=== PATIENT | female | born 1955 | race Caucasian/White ===

== ENCOUNTER → 2017-02-20 | Outpatient (CLI) | payer OTHER, MEDICAID ==
[~2017-02-20] MED LIST: ANCEF 1GM1 GM/50 M2 IV; APAP500 PO; ASPIR 8181 MG PO; ATORVASTATIN CA40 MG PO; CELEXA20 MG PO; CERTAVITE SR-A1 EACH PO; COLACE100 MG PO; CYMBALTA30 MG PO; CYMBALTA60 MG PO; DOXYCYCLINE 10100 MG PO; HUMALOG100 UNIT/1 SUBQ; HUMULIN R100 UNIT/M SUBQ; HYDROCODONE-AP1 EAC6 PO; LANTUS100 UNIT/M SUBQ; METFORMIN HCL500 MG PO; MULTIVITAMINS PO; NEURONTIN800 MG PO; NITROGLYCERIN0.4 MG SUBLING; NORCO 5-325 TA1 EACH PO; PLAVIX 75 MG TA75 M1 PO; TRAMADOL 50 MG50 MG PO; TRAZODONE HCL50 MG PO; TYLENOL325 MG PO; VANCOMYCIN1 GM/2502 IV
== END ==
LOC: M.WC 01:31
DX: E11.621 Type 2 diabetes mellitus with foot ulcer (principal); L97.511 Non-pressure chronic ulcer of other part of right foot limited to breakdown of skin; E11.51 Type 2 diabetes mellitus with diabetic peripheral angiopathy without gangrene; L89.894 Pressure ulcer of other site, stage 4; E11.42 Type 2 diabetes mellitus with diabetic polyneuropathy; I10 Essential (primary) hypertension; F33.1 Major depressive disorder, recurrent, moderate; F41.1 Generalized anxiety disorder; Z87.891 Personal history of nicotine dependence; Z72.89 Other problems related to lifestyle; Z89.421 Acquired absence of other right toe(s); Z90.710 Acquired absence of both cervix and uterus

== ENCOUNTER → 2017-02-26 | Outpatient (CLI) | payer OTHER, MEDICAID ==
--- NOTE | 2017-02-27 13:25 | CON ---
[address] [address] CONSULTATION Name: GALEN OZUNA Room: [facility] Schulte#: [id number] Admission: 02/26/17 Attend Phys: Kenji López DPM Discharge: Date of : 53 Report #: [id number] THIS REPORT FOR: //name// CC: Kenji Benedict DATE OF SERVICE: 02/26/2017 ATTENDING PHYSICIAN: Dr. Kneji López. REASON FOR FOLLOWUP: Right foot deep infection post- fourth metatarsalectomy for chronic osteomyelitis. She generally has been doing fairly well. She is utilizing wound VAC. On examination, the site is somewhat macerated. On examination, there is some undermining along the incisional line. She is seen by Dr. López who actually removed the sutures. We will plan to a wound VAC as a single approach. She has completed roughly 2 weeks of cefazolin without apparent adverse drug effect. Chronic osteomyelitis. At this point, would extend the cefazolin for at least additional 2 weeks. We will see how she does clinically. She is to call if problems. We will see her back at that point. Continue weekly labs, wound care per Dr. López. <ELECTRONICALLY SIGNED> By: Vin Jeffries MD 02/27/17 1325 0756 1101Joseelda Jeffries MD /nt
== END ==
LOC: M.WC 02-19 13:00
DX: E11.621 Type 2 diabetes mellitus with foot ulcer (principal); L97.511 Non-pressure chronic ulcer of other part of right foot limited to breakdown of skin; L89.894 Pressure ulcer of other site, stage 4; E11.51 Type 2 diabetes mellitus with diabetic peripheral angiopathy without gangrene; I10 Essential (primary) hypertension; F33.1 Major depressive disorder, recurrent, moderate; F41.1 Generalized anxiety disorder; E11.42 Type 2 diabetes mellitus with diabetic polyneuropathy; Z87.891 Personal history of nicotine dependence; Z72.89 Other problems related to lifestyle; Z89.421 Acquired absence of other right toe(s)

== ENCOUNTER → 2017-03-03 | Outpatient (CLI) | payer OTHER, MEDICAID | LOC: M.WC 10:30 | DX: E11.621 Type 2 diabetes mellitus with foot ulcer (principal); L97.511 Non-pressure chronic ulcer of other part of right foot limited to breakdown of skin; E11.42 Type 2 diabetes mellitus with diabetic polyneuropathy; E11.51 Type 2 diabetes mellitus with diabetic peripheral angiopathy without gangrene; I10 Essential (primary) hypertension; F33.1 Major depressive disorder, recurrent, moderate; F41.1 Generalized anxiety disorder; Z87.891 Personal history of nicotine dependence; Z90.710 Acquired absence of both cervix and uterus; Z89.421 Acquired absence of other right toe(s); Z72.89 Other problems related to lifestyle ==

== ENCOUNTER → 2017-03-06 | Outpatient (CLI) | payer OTHER, MEDICAID | LOC: M.WC 07:30 | DX: E11.621 Type 2 diabetes mellitus with foot ulcer (principal); L97.511 Non-pressure chronic ulcer of other part of right foot limited to breakdown of skin; L89.894 Pressure ulcer of other site, stage 4; E11.42 Type 2 diabetes mellitus with diabetic polyneuropathy; I73.9 Peripheral vascular disease, unspecified; I10 Essential (primary) hypertension; L84 Corns and callosities; F33.1 Major depressive disorder, recurrent, moderate; F41.1 Generalized anxiety disorder; Z87.891 Personal history of nicotine dependence; Z72.89 Other problems related to lifestyle; Z90.710 Acquired absence of both cervix and uterus; Z89.421 Acquired absence of other right toe(s) ==

== ENCOUNTER → 2017-03-07 | Outpatient (CLI) | payer OTHER, MEDICAID | LOC: M.WC 03-06 09:00 | DX: E11.621 Type 2 diabetes mellitus with foot ulcer (principal); L97.511 Non-pressure chronic ulcer of other part of right foot limited to breakdown of skin; L89.894 Pressure ulcer of other site, stage 4; E11.51 Type 2 diabetes mellitus with diabetic peripheral angiopathy without gangrene; E11.42 Type 2 diabetes mellitus with diabetic polyneuropathy; L84 Corns and callosities; F33.1 Major depressive disorder, recurrent, moderate; Z89.421 Acquired absence of other right toe(s); Z90.710 Acquired absence of both cervix and uterus; Z87.891 Personal history of nicotine dependence; Z72.89 Other problems related to lifestyle ==

== ENCOUNTER → 2017-03-10 | Outpatient (CLI) | payer OTHER, MEDICAID | LOC: M.WC 02:23 | DX: E11.621 Type 2 diabetes mellitus with foot ulcer (principal); L97.511 Non-pressure chronic ulcer of other part of right foot limited to breakdown of skin; E11.42 Type 2 diabetes mellitus with diabetic polyneuropathy; E11.51 Type 2 diabetes mellitus with diabetic peripheral angiopathy without gangrene; I10 Essential (primary) hypertension; F33.1 Major depressive disorder, recurrent, moderate; F41.1 Generalized anxiety disorder; Z68.27 Body mass index [BMI] 27.0-27.9, adult; Z87.891 Personal history of nicotine dependence; Z72.89 Other problems related to lifestyle; Z89.411 Acquired absence of right great toe; Z89.421 Acquired absence of other right toe(s); Z90.710 Acquired absence of both cervix and uterus; Z98.49 Cataract extraction status, unspecified eye ==

== ENCOUNTER → 2017-03-12 | Outpatient (CLI) | payer OTHER, MEDICAID ==
--- NOTE | 2017-03-13 11:27 | CON ---
[address] [address] CONSULTATION Name: DINO OZUNARamona Thomas Room: [facility] Eris#: [id number] Admission: 03/12/17 Attend Phys: Kenji López DPM Discharge: Date of : 53 Report #: [id number] THIS REPORT FOR: //name// CC: Kenji Benedict DATE OF SERVICE: 03/12/2017 ATTENDING PHYSICIAN: Kenji López DPM The patient returns today in followup of ongoing treatment for deep infection involving her right foot and osteomyelitis. 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 In general, she has been doing well. Denies significant localizing or systemic type signs or symptoms. She has completed 4 weeks of parenteral antibiotic therapy in a proposed 6-week course. Review of labs were generally not worrisome. Chronic osteomyelitis. We will continue as prescribed additional 2 weeks of therapy. We will see her back at that time and likely discontinue the IV antibiotics from the PICC line. Continue wound care as per Dr. López. <ELECTRONICALLY SIGNED> By: Vin Jeffries MD 03/13/17 1127 0734 0800Vin Jeffries MD /nt
== END ==
LOC: M.WC 01:26
DX: E11.621 Type 2 diabetes mellitus with foot ulcer (principal); L97.511 Non-pressure chronic ulcer of other part of right foot limited to breakdown of skin; L89.894 Pressure ulcer of other site, stage 4; E11.51 Type 2 diabetes mellitus with diabetic peripheral angiopathy without gangrene; E11.42 Type 2 diabetes mellitus with diabetic polyneuropathy; I10 Essential (primary) hypertension; F33.1 Major depressive disorder, recurrent, moderate; F41.1 Generalized anxiety disorder; Z68.27 Body mass index [BMI] 27.0-27.9, adult; Z87.891 Personal history of nicotine dependence; Z72.89 Other problems related to lifestyle; Z89.421 Acquired absence of other right toe(s)

== ENCOUNTER → 2017-03-14 | Outpatient (CLI) | payer OTHER, MEDICAID | LOC: M.WC 01:38 | DX: E11.621 Type 2 diabetes mellitus with foot ulcer (principal); L97.511 Non-pressure chronic ulcer of other part of right foot limited to breakdown of skin; E11.42 Type 2 diabetes mellitus with diabetic polyneuropathy; E11.51 Type 2 diabetes mellitus with diabetic peripheral angiopathy without gangrene; I10 Essential (primary) hypertension; F33.1 Major depressive disorder, recurrent, moderate; F41.1 Generalized anxiety disorder; Z89.421 Acquired absence of other right toe(s); Z90.710 Acquired absence of both cervix and uterus; Z72.89 Other problems related to lifestyle; Z87.891 Personal history of nicotine dependence ==

== ENCOUNTER → 2017-03-17 | Outpatient (CLI) | payer OTHER, MEDICAID | LOC: M.WC 01:22 | DX: E11.621 Type 2 diabetes mellitus with foot ulcer (principal); L97.511 Non-pressure chronic ulcer of other part of right foot limited to breakdown of skin; E11.42 Type 2 diabetes mellitus with diabetic polyneuropathy; E11.51 Type 2 diabetes mellitus with diabetic peripheral angiopathy without gangrene; I10 Essential (primary) hypertension; F33.1 Major depressive disorder, recurrent, moderate; F41.1 Generalized anxiety disorder; Z68.27 Body mass index [BMI] 27.0-27.9, adult; Z87.891 Personal history of nicotine dependence; Z72.89 Other problems related to lifestyle; Z89.411 Acquired absence of right great toe; Z89.421 Acquired absence of other right toe(s); Z90.710 Acquired absence of both cervix and uterus; Z98.49 Cataract extraction status, unspecified eye ==

== ENCOUNTER → 2017-03-21 | Outpatient (CLI) | payer OTHER, MEDICAID | LOC: M.WC 01:50 | DX: E11.621 Type 2 diabetes mellitus with foot ulcer (principal); L97.511 Non-pressure chronic ulcer of other part of right foot limited to breakdown of skin; L89.894 Pressure ulcer of other site, stage 4; E11.42 Type 2 diabetes mellitus with diabetic polyneuropathy; E11.51 Type 2 diabetes mellitus with diabetic peripheral angiopathy without gangrene; I10 Essential (primary) hypertension; L84 Corns and callosities; F33.1 Major depressive disorder, recurrent, moderate; F41.1 Generalized anxiety disorder; Z87.891 Personal history of nicotine dependence; Z72.89 Other problems related to lifestyle; Z90.710 Acquired absence of both cervix and uterus; Z89.421 Acquired absence of other right toe(s) ==

== ENCOUNTER → 2017-03-26 | Outpatient (CLI) | payer OTHER, MEDICAID ==
--- NOTE | 2017-03-27 13:58 | CON ---
[address] [address] CONSULTATION Name: OMEGA OZUNAHANNAH Thomas Room: [facility] Eris#: [id number] Admission: 03/26/17 Attend Phys: Kenji López DPM Discharge: Date of : 53 Report #: [id number] THIS REPORT FOR: //name// CC: Kenji Pulidoon DATE OF SERVICE: 03/26/2017 ATTENDING PHYSICIAN: Kenji López DPM The patient returns today in followup of ongoing treatment for chronic osteomyelitis involving her right foot. She has completed roughly 6 weeks of parenteral therapy and has been doing well. She has a mal perforans ulcer, she has healed the plantar aspect, residual wound on the dorsal aspect, it is much more smaller, there is no probing to bone at this point. On questioning, she denies any systemic illness, generally feels well. Review of laboratory is fairly unrevealing. Chronic osteomyelitis. At this point, we would discontinue the parenteral therapy. We would go ahead and remove the PICC line. We will see her back as needed. <ELECTRONICALLY SIGNED> By: Vin Jeffries MD 03/27/17 1358 0651 1046Jomario Jeffries MD /nt
== END ==
LOC: M.WC 01:29
DX: E11.621 Type 2 diabetes mellitus with foot ulcer (principal); L97.511 Non-pressure chronic ulcer of other part of right foot limited to breakdown of skin; E11.42 Type 2 diabetes mellitus with diabetic polyneuropathy; E11.51 Type 2 diabetes mellitus with diabetic peripheral angiopathy without gangrene; I10 Essential (primary) hypertension; F33.1 Major depressive disorder, recurrent, moderate; F41.9 Anxiety disorder, unspecified; Z68.27 Body mass index [BMI] 27.0-27.9, adult; Z87.891 Personal history of nicotine dependence; Z72.89 Other problems related to lifestyle; Z89.421 Acquired absence of other right toe(s); Z90.710 Acquired absence of both cervix and uterus

== ENCOUNTER → 2017-03-28 | Outpatient (CLI) | payer OTHER, MEDICAID | LOC: M.WC 08:00 | DX: E11.621 Type 2 diabetes mellitus with foot ulcer (principal); L97.511 Non-pressure chronic ulcer of other part of right foot limited to breakdown of skin; L89.894 Pressure ulcer of other site, stage 4; E11.42 Type 2 diabetes mellitus with diabetic polyneuropathy; E11.51 Type 2 diabetes mellitus with diabetic peripheral angiopathy without gangrene; I10 Essential (primary) hypertension; F33.1 Major depressive disorder, recurrent, moderate; F41.1 Generalized anxiety disorder; E11.36 Type 2 diabetes mellitus with diabetic cataract; Z87.891 Personal history of nicotine dependence; Z72.89 Other problems related to lifestyle; Z89.421 Acquired absence of other right toe(s); Z90.710 Acquired absence of both cervix and uterus ==

== ENCOUNTER → 2017-04-03 | Outpatient (CLI) | payer OTHER, MEDICAID | LOC: M.WC 10:00 | DX: E11.621 Type 2 diabetes mellitus with foot ulcer (principal); L97.511 Non-pressure chronic ulcer of other part of right foot limited to breakdown of skin; E11.51 Type 2 diabetes mellitus with diabetic peripheral angiopathy without gangrene; E11.42 Type 2 diabetes mellitus with diabetic polyneuropathy; I10 Essential (primary) hypertension; F33.1 Major depressive disorder, recurrent, moderate; F41.1 Generalized anxiety disorder; Z68.27 Body mass index [BMI] 27.0-27.9, adult; Z87.891 Personal history of nicotine dependence; Z72.89 Other problems related to lifestyle; Z89.421 Acquired absence of other right toe(s); Z89.411 Acquired absence of right great toe; Z90.710 Acquired absence of both cervix and uterus; Z98.49 Cataract extraction status, unspecified eye ==

== ENCOUNTER → 2017-04-09 | Outpatient (CLI) | payer OTHER, MEDICAID | LOC: M.WC 01:45 | DX: E11.621 Type 2 diabetes mellitus with foot ulcer (principal); L97.511 Non-pressure chronic ulcer of other part of right foot limited to breakdown of skin; E11.51 Type 2 diabetes mellitus with diabetic peripheral angiopathy without gangrene; E11.42 Type 2 diabetes mellitus with diabetic polyneuropathy; I10 Essential (primary) hypertension; F33.1 Major depressive disorder, recurrent, moderate; F41.1 Generalized anxiety disorder; Z68.27 Body mass index [BMI] 27.0-27.9, adult; Z87.891 Personal history of nicotine dependence; Z72.89 Other problems related to lifestyle; Z89.411 Acquired absence of right great toe; Z89.421 Acquired absence of other right toe(s); Z90.710 Acquired absence of both cervix and uterus; Z98.49 Cataract extraction status, unspecified eye ==

== ENCOUNTER → 2017-04-23 | Outpatient (CLI) | payer OTHER, MEDICAID | LOC: M.WC 03:29 | DX: E11.621 Type 2 diabetes mellitus with foot ulcer (principal); L97.511 Non-pressure chronic ulcer of other part of right foot limited to breakdown of skin; L89.894 Pressure ulcer of other site, stage 4; E11.51 Type 2 diabetes mellitus with diabetic peripheral angiopathy without gangrene; E11.40 Type 2 diabetes mellitus with diabetic neuropathy, unspecified; E11.42 Type 2 diabetes mellitus with diabetic polyneuropathy; F32.9 Major depressive disorder, single episode, unspecified; Z87.891 Personal history of nicotine dependence; Z72.89 Other problems related to lifestyle; Z89.421 Acquired absence of other right toe(s); Z90.710 Acquired absence of both cervix and uterus; Z89.411 Acquired absence of right great toe ==

== ENCOUNTER → 2017-04-25 | Outpatient (CLI) | payer OTHER, MEDICAID | LOC: M.WC 10:00 | DX: E11.621 Type 2 diabetes mellitus with foot ulcer (principal); L97.511 Non-pressure chronic ulcer of other part of right foot limited to breakdown of skin; E11.42 Type 2 diabetes mellitus with diabetic polyneuropathy; E11.51 Type 2 diabetes mellitus with diabetic peripheral angiopathy without gangrene; L89.894 Pressure ulcer of other site, stage 4; F32.9 Major depressive disorder, single episode, unspecified; Z87.891 Personal history of nicotine dependence; Z72.89 Other problems related to lifestyle; Z89.421 Acquired absence of other right toe(s); Z89.411 Acquired absence of right great toe; Z90.710 Acquired absence of both cervix and uterus ==

== ENCOUNTER → 2017-05-07 | Outpatient (CLI) | payer OTHER, MEDICAID | LOC: M.WC 01:56 | DX: E11.621 Type 2 diabetes mellitus with foot ulcer (principal); L97.511 Non-pressure chronic ulcer of other part of right foot limited to breakdown of skin; L89.894 Pressure ulcer of other site, stage 4; E11.51 Type 2 diabetes mellitus with diabetic peripheral angiopathy without gangrene; E11.42 Type 2 diabetes mellitus with diabetic polyneuropathy; F32.9 Major depressive disorder, single episode, unspecified; Z87.891 Personal history of nicotine dependence; Z72.89 Other problems related to lifestyle; Z89.421 Acquired absence of other right toe(s) ==

== ENCOUNTER → 2018-05-29 | Day surgery (SDC) | payer OTHER, MEDICAID ==
[~2018-05-29] MED LIST changes: +JARDIANCE10 MG PO; +NEXIUM40 MG PO; +NORCO 7.5-3251 EACH PO
[2018-05-29 10:05] LABS: HEMATOCRIT 41.6 % (37.0-47.0); HEMOGLOBIN 13.9 gm/dL (12.0-15.0); MCH 29.9 pg (26.0-34.0); MCHC 33.4 g/dL (28.0-37.0); MCV 89.5 fL (80.0-100.0); MPV 8.5 fl. (7.2-11.1); RBC 4.64 mil/uL (4.20-5.00); RDW-CV 14.7 % (10.5-14.5); WBC 5.8 thou/uL (4.0-11.0)
[2018-05-29 10:12] LABS: CALCIUM 9.3 mg/dL (8.5-10.1); CREATININE 0.9 mg/dL (0.6-1.3); POTASSIUM 4.5 mmol/L (3.5-5.1)
--- NOTE | 2018-05-29 13:18 | EKG ---
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: : 1955 Requested By: Kenji López Order Number: [id number] Neris MD: Jesus Simmons Measurements Intervals [place] Rate: 72 P: 21 ME: 153 QRS: -64 QRSD: 129 T: 70 QT: 432 QTc: 473 Interpretive Statements Sinus rhythm Probable left atrial enlargement RBBB and LAFB Compared to ECG 05/06/2016 14:10:12 No significant changes Electronically Signed On 05-29-2018 13:18:35 CDT by Jesus Simmons [email or web address] <ELECTRONICALLY SIGNED> By: Jesus Simmons MD, [facility] 05/29/18 1318 7 Jesus Simmons MD, [facility] /EPI
--- NOTE | 2018-06-02 15:06 | PATH ---
[address] [address] PATHOLOGY RPT PROCEDURE Name: BARBARA OZUNA Room: [facility] M.R.#: [id number] Admission: 05/29/18 Date of : 53 Discharge: Report #: [id number] Path Case #: [id number] L[facility] Accession Number: [id number] . 01 Material submitted: . RIGHT 4TH METATARSAL . 01 Clinical history: . Osteomyelitis fourth metatarsal . 02 Diagnosis: Right fourth metatarsal: - Segment of benign bone with prominent osteomyelitis at one end in association with acute inflammation of attached soft tissues, with opposite end of bone (transection edge) free of osteomyelitis. (DORA:pit 06/02/2018) QTP/06/02/2018 . 02 Electronically signed: . Bryan Thomas MD, Pathologist NPI- [id number] . 01 Gross description: . The specimen is received in formalin, labeled "Barbara Ozuna, right fourth metatarsal" and consists of a segment of bone with a small amount of attached soft tissue measuring 4.6 x 2.0 x 1.0 cm. One aspect is smooth and liu consistent with a transected margin while the other is a fragmented, possible articular surface. Sectioning reveals predominantly yellow-liu cut surfaces with brown discoloration near the fragmented surface. A full-thickness longitudinal section is submitted in A1-A2 with the transected margin in A1 and opposite surface in A2. The specimen is submitted following decalcification. ([facility]; 05/30/2018) SYU/SYU . 02 Pathologist provided ICD-10: M86.8X7, M79.89 . 02 CPT . 808391, 800343 Specimen Comment: A courtesy copy of this report has been sent to Specimen Comment: [phone]. Specimen Comment: Report sent to DR BYRD Performed at: [address] [id number] MD Sp Flynn MD Phone: [phone] Performed at: 02 [place] [address] PATHOLOGY RPT PROCEDURE Name: BARBARA OZUNA Room: [facility] M.R.#: [id number] Admission: 05/29/18 Date of : 53 Discharge: Report #: [id number] Path Case #: [id number] [facility] [address] ARIAS Hooker [id number] MD Bryan Thomas MD Phone: [phone]
--- NOTE | 2018-06-24 17:31 | OP ---
[address] [address] OPERATIVE REPORT Name: GALEN OZUNA Room: [facility].#: [id number] Admission: 05/29/18 Attend Phys: Kenji López DPM Discharge: Date of : 53 Report #: [id number] THIS REPORT FOR: //name// CC: Kenji Benedict DATE OF SERVICE: 05/29/2018 SURGEON: Kenji López DPM PREOPERATIVE DIAGNOSIS: Osteomyelitis, right distal fourth metatarsal. POSTOPERATIVE DIAGNOSIS: Osteomyelitis, right distal fourth metatarsal. PROCEDURE: 1. Resection of right fourth metatarsal. 2. Incision and drainage, right foot. 3. Pedicled skin flap, right foot. ANESTHESIA: MAC. INJECTABLES: 30 mL of a 1:1 mixture of 0.5% Marcaine plain and 1% lidocaine plain. HEMOSTASIS: Right ankle pneumatic tourniquet at 250 mmHg. SPECIMENS: Right fourth metatarsal. CULTURES: 1. Bone, right fourth metatarsal, aerobic, anaerobic. 2. Soft tissue, right foot, aerobic, anaerobic. ESTIMATED BLOOD LOSS: Minimal. SUTURES: 3-0 nylon. COMPLICATIONS: None. DESCRIPTION OF PROCEDURE: The patient was brought to the OR and placed on the table supine with induction of MAC anesthesia. A well-padded right ankle pneumatic tourniquet was placed. A local anesthetic block was given to the distal right foot and extremity was prepped and draped aseptically. After exsanguination, the tourniquet was inflated and a dorsal incision was created over the right distal fourth metatarsal extending to the distal foot wound. Layered anatomic dissection utilized with electrocautery for hemostasis. The distal fourth metatarsal was discolored, soft and necrotic consistent with [address] [address] OPERATIVE REPORT Name: GALEN OZUNA Room: [facility] Eris#: [id number] Admission: 05/29/18 Attend Phys: Kenji López DPM Discharge: Date of : 53 Report #: [id number] osteomyelitis. This encompassed the distal head and neck region of the metatarsal. The midshaft and more proximal metatarsal shaft had a normal appearance. I mobilized the soft tissue off the fourth metatarsal and transected at the base. A portion of bone from the metatarsal head was sent for aerobic and anaerobic bone cultures and some surrounding soft tissue was sent for the same cultures. The remaining fourth metatarsal was sent for surgical pathology. I debrided the wound interior of any devitalized or infected looking tissue and tendons. The wound was cauterized and flushed with sterile saline with bacitracin irrigant. I remodeled the skin margins and mobilized the flap from plantar medial to dorsal lateral and sutured with 3-0 nylon in simple interrupted fashion. I utilized a piece of NOZA AG as a drain between 2 sutures. I was able to close the entire incision without an open wound. The foot was cleansed and dried and a sterile compressive bandage was applied. The tourniquet was deflated with normal vascular return. The patient left the OR with no complications noted. <ELECTRONICALLY SIGNED> By: Kenji López DPM 06/24/18 1731 1256 1322Dbassam López DPM /nt
== END | disposition home or self-care (01) ==
LOC: M.SUR 06:57
PROVIDERS: Podiatrist Foot & Ankle Surgery
DX: M86.171 Other acute osteomyelitis, right ankle and foot (principal); M79.89 Other specified soft tissue disorders; E11.9 Type 2 diabetes mellitus without complications; G62.9 Polyneuropathy, unspecified; K21.9 Gastro-esophageal reflux disease without esophagitis; E66.09 Other obesity due to excess calories; Z79.899 Other long term (current) drug therapy; Z88.6 Allergy status to analgesic agent; Z90.710 Acquired absence of both cervix and uterus; F17.210 Nicotine dependence, cigarettes, uncomplicated; Z98.890 Other specified postprocedural states; Z90.49 Acquired absence of other specified parts of digestive tract; Z88.8 Allergy status to other drugs, medicaments and biological substances

== ENCOUNTER → 2018-06-10 | Outpatient (CLI) | payer OTHER, MEDICAID | LOC: M.WC 05:11 | DX: E11.621 Type 2 diabetes mellitus with foot ulcer (principal); L97.512 Non-pressure chronic ulcer of other part of right foot with fat layer exposed; E11.42 Type 2 diabetes mellitus with diabetic polyneuropathy; E11.51 Type 2 diabetes mellitus with diabetic peripheral angiopathy without gangrene; E11.69 Type 2 diabetes mellitus with other specified complication; M86.8X7 Other osteomyelitis, ankle and foot; I87.2 Venous insufficiency (chronic) (peripheral); F32.9 Major depressive disorder, single episode, unspecified; Z98.49 Cataract extraction status, unspecified eye; Z90.710 Acquired absence of both cervix and uterus; Z89.411 Acquired absence of right great toe; Z89.421 Acquired absence of other right toe(s); Z87.891 Personal history of nicotine dependence ==

== ENCOUNTER → 2018-06-17 | Outpatient (CLI) | payer OTHER, MEDICAID ==
--- NOTE | 2018-06-18 11:26 | CON ---
[address] [address] CONSULTATION Name: GALEN OZUNA Room: [facility] MARTINE[facility] McleanRoShilpaRo#: [id number] Admission: 06/17/18 Attend Phys: Sp Benedict, Discharge: Date of : 53 Report #: [id number] THIS REPORT FOR: //name// CC: Sp Benedict DATE OF SERVICE: 06/17/2018 ATTENDING PHYSICIAN: Dr. López. She is seen at [facility] in [place], [place]. The patient returns in followup ongoing treatment for osteomyelitis involving her right foot. She is status post lateral toe amputation. Postop course, she has been on parenteral antimicrobial therapy with cefazolin for roughly 3 weeks to this date. She did have dehiscence of the site. On evaluation at present with Dr. López, he did debride the wound. He did not appreciate any extension to bone at this point. He did debride using a curette, had reasonably good granulation tissue. Overall degree of inflammation was pretty mild at the surface and the margin of the wound. On questioning, she denies any particular associated systemic illness. Appetite has been fair. Blood sugars have been well controlled. I did review her most recent labs, which was unremarkable including a sed rate in the single digit. ASSESSMENT AND PLAN: Chronic osteomyelitis. At this point, would extend the parenteral antibiotics likely just one more week. Continue wound care as prescribed including packing of the wound. She is to offload this site, optimize her nutritional intake. <ELECTRONICALLY SIGNED> By: Vin Jeffries MD 06/18/18 1126 1602 0904Joseelda Jeffries MD /nt
== END ==
LOC: M.RAD 05:08 → M.WC 05:08
DX: E11.621 Type 2 diabetes mellitus with foot ulcer (principal); L97.512 Non-pressure chronic ulcer of other part of right foot with fat layer exposed; E11.69 Type 2 diabetes mellitus with other specified complication; M86.671 Other chronic osteomyelitis, right ankle and foot; E11.51 Type 2 diabetes mellitus with diabetic peripheral angiopathy without gangrene; E11.42 Type 2 diabetes mellitus with diabetic polyneuropathy; I87.2 Venous insufficiency (chronic) (peripheral); F32.9 Major depressive disorder, single episode, unspecified; Z95.0 Presence of cardiac pacemaker; Z89.411 Acquired absence of right great toe; Z87.891 Personal history of nicotine dependence; Z89.421 Acquired absence of other right toe(s)

== ENCOUNTER → 2018-06-24 | Outpatient (CLI) | payer OTHER, MEDICAID ==
--- NOTE | 2018-06-25 11:08 | CON ---
[address] [address] CONSULTATION Name: OZUNAGALEN ANGELA Room: [facility] Schulte#: [id number] Admission: 06/24/18 Attend Phys: Kenji López DPM Discharge: Date of : 53 Report #: [id number] THIS REPORT FOR: //name// CC: Kenji Benedict DATE OF SERVICE: 06/24/2018 ATTENDING PHYSICIAN: Kenij López DPM HISTORY OF PRESENT ILLNESS: She is in the [facility] at [place], [place]. The patient returns today in followup. She is post right fourth toe amputation, status post wound, deep infection involving the distal aspect of the metatarsal. She generally has done fairly well over the course of last 4 weeks since her surgery. She has been on parenteral therapy with cefazolin 2 grams IV q.8. The wound does show apparent contraction in overall size dimension, it is still roughly 2 cm of depth per probing by Dr. López. Apparently, she has got communication with hard tissue, in particular bone at this point. Review of the path report shows the margins to be clean and free of infection involving the third portion of the metatarsal. Chronic osteomyelitis. At this point, I think it is reasonable to transition to oral antibiotics. We will plan on 2 additional weeks of cephalexin with 500 mg p.o. 3 times a day because I removed the PICC line. She will continue offloading the site and wound care as per Dr. López. Again, encouraged oral food intake, in particular protein. <ELECTRONICALLY SIGNED> By: Vin Jeffries MD 06/25/18 1108 1707 0428Jomario Jeffries MD /nt
== END ==
LOC: M.WC 05:07
DX: E11.621 Type 2 diabetes mellitus with foot ulcer (principal); L97.512 Non-pressure chronic ulcer of other part of right foot with fat layer exposed; E11.51 Type 2 diabetes mellitus with diabetic peripheral angiopathy without gangrene; E11.69 Type 2 diabetes mellitus with other specified complication; M86.8X7 Other osteomyelitis, ankle and foot; E11.42 Type 2 diabetes mellitus with diabetic polyneuropathy; I87.2 Venous insufficiency (chronic) (peripheral); F32.9 Major depressive disorder, single episode, unspecified; Z89.411 Acquired absence of right great toe; Z89.421 Acquired absence of other right toe(s); Z87.891 Personal history of nicotine dependence

== ENCOUNTER → 2018-07-02 | Outpatient (CLI) | payer OTHER, MEDICAID | LOC: M.WC 08:11 | DX: E11.621 Type 2 diabetes mellitus with foot ulcer (principal); L97.512 Non-pressure chronic ulcer of other part of right foot with fat layer exposed; L89.893 Pressure ulcer of other site, stage 3; E11.42 Type 2 diabetes mellitus with diabetic polyneuropathy; E11.69 Type 2 diabetes mellitus with other specified complication; M86.671 Other chronic osteomyelitis, right ankle and foot; E11.51 Type 2 diabetes mellitus with diabetic peripheral angiopathy without gangrene; I87.2 Venous insufficiency (chronic) (peripheral); F32.9 Major depressive disorder, single episode, unspecified; Z89.421 Acquired absence of other right toe(s); Z89.422 Acquired absence of other left toe(s); Z89.411 Acquired absence of right great toe; Z87.891 Personal history of nicotine dependence ==

== ENCOUNTER → 2018-07-08 | Outpatient (CLI) | payer OTHER, MEDICAID ==
[2018-07-08 12:38] LABS: ABSOLUTE BASOPHILS 0.1 thou/uL (0.0-0.2); ABSOLUTE EOSINOPHILS 0.1 thou/uL (0.0-0.7); ABSOLUTE LYMPHOCYTES 1.7 thou/uL (0.8-5.3); ABSOLUTE MONOCYTES 0.3 thou/uL (0.0-1.2); ABSOLUTE NEUTROPHILS 4.1 thou/uL (1.6-8.1); BASOPHILS 1.1 %; EOSINOPHILS 1.2 %; HEMATOCRIT 46.1 % (37.0-47.0); HEMOGLOBIN 15.4 gm/dL (12.0-15.0); LYMPHOCYTES 27.2 %; MCHC 33.5 g/dL (28.0-37.0); MCV 89.4 fL (80.0-100.0); MONOCYTES 4.6 %; MPV 8.3 fl. (7.2-11.1); NUCLEATED RBCS 0 /100WBC; PLATELET COUNT* 166 thou/uL (150-400); POLYS 65.9 %; RBC 5.15 mil/uL (4.20-5.00); RDW-CV 15.2 % (10.5-14.5); WBC 6.2 thou/uL (4.0-11.0)
[2018-07-08 12:52] LABS: CALCIUM 9.3 mg/dL (8.5-10.1); CREATININE 0.8 mg/dL (0.6-1.3); POTASSIUM 4.9 mmol/L (3.5-5.1)
[2018-07-08 13:45] LABS: ESR (SEDRATE) 0 mm/hr (0-30)
== END ==
LOC: M.LAB 12:07
PROVIDERS: Family Medicine
DX: E11.621 Type 2 diabetes mellitus with foot ulcer (principal); E11.42 Type 2 diabetes mellitus with diabetic polyneuropathy; Z79.84 Long term (current) use of oral hypoglycemic drugs

== ENCOUNTER → 2018-07-10 | Outpatient (CLI) | payer OTHER, MEDICAID | LOC: M.WC 05:10 | DX: E11.621 Type 2 diabetes mellitus with foot ulcer (principal); L97.512 Non-pressure chronic ulcer of other part of right foot with fat layer exposed; L89.893 Pressure ulcer of other site, stage 3; E11.69 Type 2 diabetes mellitus with other specified complication; M86.671 Other chronic osteomyelitis, right ankle and foot; E11.51 Type 2 diabetes mellitus with diabetic peripheral angiopathy without gangrene; E11.42 Type 2 diabetes mellitus with diabetic polyneuropathy; I87.2 Venous insufficiency (chronic) (peripheral); F32.9 Major depressive disorder, single episode, unspecified; Z89.411 Acquired absence of right great toe; Z89.421 Acquired absence of other right toe(s); Z87.891 Personal history of nicotine dependence ==

== ENCOUNTER → 2018-07-17 | Outpatient (CLI) | payer OTHER, MEDICAID ==
--- NOTE | 2018-07-18 09:49 | CON ---
[address] [address] CONSULTATION Name: GALEN OZUNA Room: [facility] McleanRoShilpaRo#: [id number] Admission: 07/17/18 Attend Phys: Sp Benedict, Discharge: Date of : 53 Report #: [id number] THIS REPORT FOR: //name// CC: Sp Benedict DATE OF SERVICE: 07/17/2018 INFECTIOUS DISEASE CONSULTATION ATTENDING PHYSICIAN: Dr. Benedict. HISTORY OF PRESENT ILLNESS: She is here for right lateral foot chronic ulcerations setting of a deep infection. She is undergoing wound care as well as hyperbaric oxygen. She had completed a course of prescribed therapy, initially parenteral switched to oral. On evaluation, the wound continues to diminish in size, depth of 0.7. There is no evidence of ongoing issues with purulence. Deep right foot infection, postoperative debridement. We will continue as prescribed off the antibiotics, hyperbaric oxygen will be available as needed. Continue wound care. <ELECTRONICALLY SIGNED> By: Vin Jeffries MD 07/18/18 0949 0950 1401Jomario Jeffries MD /nt
== END ==
LOC: M.WC 00:14
DX: E11.621 Type 2 diabetes mellitus with foot ulcer (principal); L97.522 Non-pressure chronic ulcer of other part of left foot with fat layer exposed; L89.893 Pressure ulcer of other site, stage 3; E11.51 Type 2 diabetes mellitus with diabetic peripheral angiopathy without gangrene; E11.69 Type 2 diabetes mellitus with other specified complication; M86.671 Other chronic osteomyelitis, right ankle and foot; E11.42 Type 2 diabetes mellitus with diabetic polyneuropathy; I87.2 Venous insufficiency (chronic) (peripheral); F32.9 Major depressive disorder, single episode, unspecified; Z89.411 Acquired absence of right great toe; Z89.421 Acquired absence of other right toe(s); Z87.891 Personal history of nicotine dependence

== ENCOUNTER → 2018-07-24 | Outpatient (CLI) | payer OTHER, MEDICAID | LOC: M.WC 05:04 | DX: E11.621 Type 2 diabetes mellitus with foot ulcer (principal); L97.512 Non-pressure chronic ulcer of other part of right foot with fat layer exposed; L89.893 Pressure ulcer of other site, stage 3; E11.69 Type 2 diabetes mellitus with other specified complication; M86.671 Other chronic osteomyelitis, right ankle and foot; E11.51 Type 2 diabetes mellitus with diabetic peripheral angiopathy without gangrene; E11.42 Type 2 diabetes mellitus with diabetic polyneuropathy; I87.2 Venous insufficiency (chronic) (peripheral); F32.9 Major depressive disorder, single episode, unspecified; Z89.411 Acquired absence of right great toe; Z89.421 Acquired absence of other right toe(s); Z87.891 Personal history of nicotine dependence ==

== ENCOUNTER → 2018-07-31 | Outpatient (CLI) | payer OTHER, MEDICAID | LOC: M.WC 08:13 | DX: E11.621 Type 2 diabetes mellitus with foot ulcer (principal); L97.511 Non-pressure chronic ulcer of other part of right foot limited to breakdown of skin; L89.893 Pressure ulcer of other site, stage 3; E11.42 Type 2 diabetes mellitus with diabetic polyneuropathy; E11.69 Type 2 diabetes mellitus with other specified complication; M86.671 Other chronic osteomyelitis, right ankle and foot; I87.2 Venous insufficiency (chronic) (peripheral); E11.51 Type 2 diabetes mellitus with diabetic peripheral angiopathy without gangrene; F32.9 Major depressive disorder, single episode, unspecified; Z89.421 Acquired absence of other right toe(s); Z89.411 Acquired absence of right great toe; Z87.891 Personal history of nicotine dependence ==

== ENCOUNTER → 2018-08-07 | Outpatient (CLI) | payer OTHER, MEDICAID | LOC: M.WC 04:55 | DX: E11.621 Type 2 diabetes mellitus with foot ulcer (principal); L97.511 Non-pressure chronic ulcer of other part of right foot limited to breakdown of skin; L89.893 Pressure ulcer of other site, stage 3; E11.69 Type 2 diabetes mellitus with other specified complication; M86.671 Other chronic osteomyelitis, right ankle and foot; E11.42 Type 2 diabetes mellitus with diabetic polyneuropathy; E11.51 Type 2 diabetes mellitus with diabetic peripheral angiopathy without gangrene; I87.2 Venous insufficiency (chronic) (peripheral); F32.9 Major depressive disorder, single episode, unspecified; Z89.421 Acquired absence of other right toe(s); Z89.411 Acquired absence of right great toe; Z87.891 Personal history of nicotine dependence ==

== ENCOUNTER 2020-02-16 20:36 | Inpatient (IN) | payer MEDICARE ==
[~2020-02-16] VITALS: Ht 167.6 cm; Wt 81.0 kg
[2020-02-16 20:51] VITALS: BP 123/88
[2020-02-16] MEDS ORDERED: GABAPENTIN800 M1 PO (20:57)
[2020-02-16 21:31] LABS: ABSOLUTE BASOPHILS 0.1 thou/uL (0.0-0.2); ABSOLUTE LYMPHOCYTES 1.1 thou/uL (0.8-5.3); BASOPHILS 0.8 %; EOSINOPHILS 0.2 %; HEMATOCRIT 42.1 % (37.0-47.0); HEMOGLOBIN 14.2 gm/dL (12.0-15.0); MCH 29.4 pg (26.0-34.0); MCHC 33.7 g/dL (28.0-37.0); MCV 87.3 fL (80.0-100.0); MONOCYTES 7.9 %; MPV 8.2 fl. (7.2-11.1); NUCLEATED RBCS 0 /100WBC; PLATELET COUNT* 192 thou/uL (150-400); POLYS 82.1 %; RBC 4.82 mil/uL (4.20-5.00); RDW-CV 15.1 % (10.5-14.5); WBC 12.2 thou/uL (4.0-11.0)
[2020-02-16 21:46] LABS: APTT 25.1 Seconds (25.0-31.3); PROTIME 10.8 Seconds (9.20-11.50)
[2020-02-16 21:47] LABS: CALCIUM 10.1 mg/dL (8.5-10.1); CREATININE 1.1 mg/dL (0.6-1.3); POTASSIUM 4.8 mmol/L (3.5-5.1)
[2020-02-16 21:49] LABS: ALBUMIN 2.9 g/dL (3.4-5.0); TOTAL BILIRUBIN 0.6 mg/dL (<0.1-1.0); TOTAL PROTEIN 7.2 g/dL (6.4-8.2)
[2020-02-16 23:30] VITALS: BP 107/71
[2020-02-16 23:48] VITALS: BP 99/55
[2020-02-17 04:13] LABS: HEMATOCRIT 37.1 % (37.0-47.0); HEMOGLOBIN 12.7 gm/dL (12.0-15.0); MCH 29.4 pg (26.0-34.0); MCHC 34.2 g/dL (28.0-37.0); MCV 86.1 fL (80.0-100.0); MPV 8.1 fl. (7.2-11.1); RBC 4.31 mil/uL (4.20-5.00); WBC 10.2 thou/uL (4.0-11.0)
[2020-02-17 04:35] LABS: ALBUMIN 2.6 g/dL (3.4-5.0); CALCIUM 9.4 mg/dL (8.5-10.1); CREATININE 0.8 mg/dL (0.6-1.3); POTASSIUM 3.9 mmol/L (3.5-5.1); TOTAL BILIRUBIN 0.5 mg/dL (<0.1-1.0); TOTAL PROTEIN 6.4 g/dL (6.4-8.2)
[2020-02-17 08:02] VITALS: BP 114/68
--- NOTE | 2020-02-17 10:46 | EKG ---
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 : 1955 Requested By: Melody Pierce Order Number: [id number] MD: Chris Skinner Measurements Intervals [place] Rate: 99 P: -1 PA: 142 QRS: -63 QRSD: 123 T: 73 QT: 399 QTc: 513 Interpretive Statements Sinus rhythm Supraventricular bigeminy Probable left atrial enlargement RBBB and LAFB Baseline wander in lead(s) V6 Compared to ECG 05/29/2018 08:48:06 Atrial premature complex(es) now present Electronically Signed On 02-17-2020 10:46:21 SUBASSEMBLY ASSEMBLER by Chris Skinner [email or web address] <ELECTRONICALLY SIGNED> By: Chris Siknner MD, FACC 02/17/20 1046 58 58 Chris Skinner MD, [facility] /EPI
[2020-02-17 16:52] VITALS: BP 159/68
[2020-02-17 20:00] VITALS: BP 112/55
[2020-02-17 23:07] LABS: GLYCOHEMOGLOBIN (HGB A1C) 12.7 % (4.8-5.6)
[2020-02-18 03:06] LABS: CREATININE 0.8 mg/dL (0.6-1.3)
[2020-02-18 03:13] LABS: POTASSIUM 5.2 mmol/L (3.5-5.1)
[2020-02-18 04:00] VITALS: BP 115/68
[2020-02-18 04:17] LABS: ABSOLUTE BASOPHILS 0.1 thou/uL (0.0-0.2); ABSOLUTE EOSINOPHILS 0.1 thou/uL (0.0-0.7); ABSOLUTE LYMPHOCYTES 1.8 thou/uL (0.8-5.3); ABSOLUTE MONOCYTES 1.1 thou/uL (0.0-1.2); ABSOLUTE NEUTROPHILS 6.9 thou/uL (1.6-8.1); BASOPHILS 0.7 %; EOSINOPHILS 0.9 %; HEMATOCRIT 35.4 % (37.0-47.0); LYMPHOCYTES 17.7 %; MCH 29.5 pg (26.0-34.0); MCV 86.9 fL (80.0-100.0); MONOCYTES 10.6 %; MPV 7.4 fl. (7.2-11.1); NUCLEATED RBCS 0 /100WBC; PLATELET COUNT* 193 thou/uL (150-400); POLYS 70.1 %; RBC 4.07 mil/uL (4.20-5.00); RDW-CV 15.2 % (10.5-14.5); WBC 9.9 thou/uL (4.0-11.0)
[2020-02-18 08:29] VITALS: BP 115/70
[2020-02-18 11:30] VITALS: BP 121/75
[2020-02-18 17:15] VITALS: BP 121/75
[2020-02-18 20:00] VITALS: BP 120/69
[2020-02-19 00:24] VITALS: BP 120/72
[2020-02-19 04:05] LABS: ALBUMIN 1.6 g/dL (3.4-5.0); TOTAL BILIRUBIN 1.1 mg/dL (<0.1-1.0); TOTAL PROTEIN 3.6 g/dL (6.4-8.2)
[2020-02-19 04:25] LABS: POTASSIUM 3.1 mmol/L (3.5-5.1)
[2020-02-19 04:26] LABS: CALCIUM 5.6 mg/dL (8.5-10.1)
[2020-02-19 04:29] LABS: ABSOLUTE EOSINOPHILS 0.1 thou/uL (0.0-0.7); ABSOLUTE LYMPHOCYTES 1.3 thou/uL (0.8-5.3); ABSOLUTE MONOCYTES 0.8 thou/uL (0.0-1.2); ABSOLUTE NEUTROPHILS 5.2 thou/uL (1.6-8.1); BASOPHILS 0.5 %; HEMATOCRIT 25.8 % (37.0-47.0); LYMPHOCYTES 17.7 %; MCH 29.6 pg (26.0-34.0); MCHC 33.8 g/dL (28.0-37.0); MCV 87.5 fL (80.0-100.0); MONOCYTES 10.4 %; MPV 7.5 fl. (7.2-11.1); NUCLEATED RBCS 0 /100WBC; POLYS 70.4 %; RBC 2.95 mil/uL (4.20-5.00); RDW-CV 14.8 % (10.5-14.5); WBC 7.4 thou/uL (4.0-11.0)
[2020-02-19 04:30] LABS: HEMOGLOBIN 8.7 gm/dL (12.0-15.0)
[2020-02-19 06:11] LABS: PLATELET COUNT* 149 thou/uL (150-400)
[2020-02-19 08:00] VITALS: BP 130/64
[2020-02-19 11:00] VITALS: BP 118/64
[2020-02-19 16:06] VITALS: BP 121/74
[2020-02-19 19:54] VITALS: BP 78/47
[2020-02-20 04:58] LABS: ABSOLUTE BASOPHILS 0.1 thou/uL (0.0-0.2); ABSOLUTE EOSINOPHILS 0.1 thou/uL (0.0-0.7); ABSOLUTE LYMPHOCYTES 1.5 thou/uL (0.8-5.3); ABSOLUTE MONOCYTES 0.6 thou/uL (0.0-1.2); ABSOLUTE NEUTROPHILS 4.3 thou/uL (1.6-8.1); BASOPHILS 0.9 %; EOSINOPHILS 1.4 %; HEMATOCRIT 31.9 % (37.0-47.0); LYMPHOCYTES 23.3 %; MCH 29.4 pg (26.0-34.0); MCV 86.7 fL (80.0-100.0); MONOCYTES 8.9 %; MPV 7.4 fl. (7.2-11.1); NUCLEATED RBCS 0 /100WBC; PLATELET COUNT* 202 thou/uL (150-400); POLYS 65.5 %; RBC 3.68 mil/uL (4.20-5.00); RDW-CV 15.2 % (10.5-14.5); WBC 6.6 thou/uL (4.0-11.0)
[2020-02-20 05:09] LABS: HEMOGLOBIN 10.8 gm/dL (12.0-15.0)
[2020-02-20 05:18] LABS: ALBUMIN 2.2 g/dL (3.4-5.0); CREATININE 0.6 mg/dL (0.6-1.3); POTASSIUM 4.4 mmol/L (3.5-5.1); TOTAL BILIRUBIN 0.2 mg/dL (<0.1-1.0); TOTAL PROTEIN 5.7 g/dL (6.4-8.2)
[2020-02-20 05:19] LABS: CALCIUM 8.7 mg/dL (8.5-10.1)
[2020-02-20 08:02] VITALS: BP 123/71
[2020-02-20 16:41] VITALS: BP 106/63
[2020-02-20 19:45] VITALS: BP 89/41
[2020-02-21] VITALS (7 sets, daily range): BP systolic 112–129; BP diastolic 64–70
[2020-02-21] MEDS ORDERED: HUMALOG100 UNIT/1 SUBQ (11:06)
[2020-02-21] MEDS ORDERED: KEFLEX500 M1 PO (15:28)
[2020-02-21] MEDS ORDERED: FLAGYL500 M1 PO (15:29)
--- NOTE | 2020-02-23 13:06 | OP ---
[address] [address] OPERATIVE REPORT Name: GALEN OZUNA Room: [address] IN M.R.#: [id number] Admission: 02/16/20 Attend Phys: Anamaria Kitchen MD Discharge: 02/21/20 Date of : 53 Report #: [id number] THIS REPORT FOR: cc: Sp Benedict Russell J. DO ~ Hanon, Daniel R. DPM DATE OF SERVICE: 02/17/2020 SURGEON: Kenji López DPM PREOPERATIVE DIAGNOSES: Gangrene with osteomyelitis, left great toe. POSTOPERATIVE DIAGNOSES: Gangrene with osteomyelitis, left great toe. PROCEDURE: Amputation, left great toe at first MTP with primary closure. ANESTHESIA: MAC. INJECTABLES: 30 mL of 1:1 mixture of 0.5% Marcaine plain and 1% lidocaine plain. ESTIMATED BLOOD LOSS: Minimal. HEMOSTASIS: Left ankle pneumatic tourniquet at 250 mmHg. SUTURES: 3-0 nylon. SPECIMENS: Left great toe. CULTURES: 1. Bone, left great toe, aerobic and anaerobic. 2. Soft tissue, left great toe, aerobic and anaerobic. DESCRIPTION OF PROCEDURE: The patient was brought to the OR and placed on the table supine with induction of MAC anesthesia. A well-padded left ankle pneumatic tourniquet was placed and local anesthetic block was given with the above described mixture. The extremity was prepped and draped aseptically. The foot was exsanguinated with inflation of the tourniquet. A #10 blade was utilized to create a tennis racquet circumferential incision around the left great toe. Layered anatomic dissection utilized with electrocautery for intraoperative hemostasis. The great toe was [place] [address] OPERATIVE REPORT Name: GALEN OZUNA Room: [address]#: [id number] Admission: 02/16/20 Attend Phys: Anamaria Kitchen MD Discharge: 02/21/20 Date of : 53 Report #: [id number] and portion of bone and soft tissue ____ pathology, ____ was debrided with ____ the tourniquet was deflated ____. <ELECTRONICALLY SIGNED> By: Kenji López DPM 02/23/20 1306 27 36Kenji López DPM /nt
--- NOTE | 2020-02-23 13:06 | CON ---
[address] [address] CONSULTATION Name: GALEN OZUNA Room: [address] IN M.R.#: [id number] Admission: 02/16/20 Attend Phys: Anamaria Kitchen MD Discharge: 02/21/20 Date of : 53 Report #: [id number] THIS REPORT FOR: cc: Sp Benedict Russell J. DO ~ Hanon, Daniel R. DPM DATE OF SERVICE: 02/21/2020 CHIEF COMPLAINT: Postoperative day #4 for amputation of left great toe for osteomyelitis and gangrene. Surgical cultures grew methicillin-sensitive Staph aureus and group B streptococcus. She is on parenteral vancomycin and ceftriaxone with good tolerance. She feels well, good appetite, remained afebrile. She is partial weightbearing in a surgical shoe with walker for short distances and transfers. LABORATORY DATA: WBC 6.6, RBC 3.68, hemoglobin 10.8, hematocrit 31.9, platelets 202. BUN 13, creatinine 0.6, glucose 107. PHYSICAL EXAMINATION: Incision is well approximated with low-grade inflammation and no signs of dehiscence or acute vascular compromise. No drainage, bleeding or underlying fluctuance/crepitation. The foot is warm with faintly palpable pedal pulses bilaterally. No calf pain or popliteal tenderness bilaterally. Overall, clinically improved. IMPRESSION: Osteomyelitis with gangrene of left hallux, status post surgical amputation. PLAN: The patient to remain partial weightbearing in a surgical shoe with walker for short distances. Encouraged to rest, elevate foot, minimize ambulation. I will discuss with hospitalist regarding antibiotic choice. I will follow up with her next week at [facility] [place]. <ELECTRONICALLY SIGNED> By: Kenji López DPM 02/23/20 1306 0739 0744Kenji López DPM /nt
--- NOTE | 2020-02-23 13:06 | CON ---
[address] [address] CONSULTATION Name: GALEN OZUNA Room: [address] IN M.R.#: [id number] Admission: 02/16/20 Attend Phys: Anamaria Kitchen MD Discharge: 02/21/20 Date of : 53 Report #: [id number] THIS REPORT FOR: cc: Sp Benedict Russell J. DO ~ Kenji López DPM DATE OF SERVICE: 02/19/2020 CHIEF COMPLAINT: Postoperative day #2 for amputation of left great toe at first MTP with primary closure for osteomyelitis and gangrene. She is resting comfortably, minimal foot pain. Surgical tissue and bone cultures growing group B Streptococcus and Staphylococcus aureus. Arterial duplex Doppler ultrasound has been ordered. She is on parenteral vancomycin 1 gram q. 12 hours and ceftriaxone 1 gram q. 24 hours. She has remained nonweightbearing since surgery. She relates good appetite, she has been afebrile. LABORATORY DATA: WBC 7.4, RBC 2.95, hemoglobin 8.7, hematocrit 25.8, platelets 149. BUN 10, creatinine 1.0, glucose 46. PHYSICAL EXAMINATION: Temperature 97.0, pulse 77, respirations 18, blood pressure 120/72. The incision is well coapted with mild inflammation to the central aspect. No dehiscence, no underlying fluctuance or crepitation. Codi-incision capillary refill roughly 1 second. No pallor/cyanosis or signs of acute vascular embarrassment to the extremity. No calf pain or popliteal tenderness, back/adenopathy. IMPRESSION: Status post left hallux amputation for gangrene/osteomyelitis. PLAN: Incision cleansed and dressed with Xeroform, ABDs, Kerlix, and Jeffery bandage. The patient may transition to partial weightbearing to the heel after she receives physical therapy instruction. Encouraged to rest, elevate the extremity and minimize ambulation. <ELECTRONICALLY SIGNED> By: Kenji López DPM 02/23/20 1306 0938 1039Dakang López DPM /nt
--- NOTE | 2020-02-23 15:07 | PATH ---
[address] [address] PATHOLOGY RPT PROCEDURE Name: BARBARA OZUNA Room: [address] IN M.R.#: [id number] Admission: 02/16/20 Date of : 53 Discharge: 02/21/20 Report #: [id number] Path Case #: [id number] [facility] Accession Number: [id number] . 01 Material submitted: . hallux - LEFT HALLUX. Modifiers: left . 01 Clinician provided ICD-10: L03.032 . 01 Clinical history: . OSTEOMYELITIS AND GANGRENE LEFT GREAT TOE, CELLULITIS LEFT FOOT, UNCONTR DM . 02 Diagnosis: Left hallux: - Benign great toe with plantar non-specific ulceration, acute inflammation and necrosis of soft tissues and osteomyelitis of phalangeal bones. - Proximal disarticulation margin free of osteomyelitis. (DORA/db; 02/23/2020) LBQ 02/23/2020 1220 Local . 02 Electronically signed: . Bryan Thomas MD, Pathologist NPI- [id number] . 01 Gross description: . The specimen is received in formalin, labeled "Barbara Ozuna, left hallux". Received is an amputated digit measuring 6.6 x 3.3 x 2.4 cm in greatest dimensions. The bone margin is smooth and concave in appearance, consistent with disarticulation. The bone and soft tissue margins are inked black. The nail is present displaying a light liu to yellow-liu and thickened appearance. On the plantar aspect of the specimen, there is a poorly circumscribed, irregular in contour and light liu to pereyra-brown lesion, exposing the underlying bone, measuring 3.8 x 2.7 cm, which is 1.0 cm from the closest margin. A full-thickness longitudinal cross-section is submitted from proximal to distal aspects in cassettes A1 through A3, following decalcification. ([facility]; 02/21/2020) QA/[facility] 02/21/2020 1113 Local . 02 Pathologist provided ICD-10: L97.529, M79.9, M86.172 . 02 CPT . 303787, 391290 Specimen Comment: A courtesy copy of this report has been sent to [phone], [place] [address] PATHOLOGY RPT PROCEDURE Name: BARBARA OZUNA Room: [address] DIS IN M.R.#: [id number] Admission: 02/16/20 Date of : 53 Discharge: 02/21/20 Report #: [id number] Path Case #: [id number] Specimen Comment: [phone], Specimen Comment: Report sent to ,DR NAYAK / DR BYRD Performed at: [address], [place], [place] [id number] MD Jayro Powell MD Phone: [phone] Performed at: 02 [facility] [address], [place], [place] [id number] MD Bryan Thomas MD Phone: [phone]
== END 2020-02-21 16:24 | disposition home health service (06) | DRG 617 ==
LOC: M.ERS 20:36 → M.2W 22:12 → M.TBA-ER 22:12 → M.2W 23:40 → M.3W 02-19 11:17
PROVIDERS: Internal Medicine; Nurse Practitioner Family; ADMIT Internal Medicine; ATTEND Internal Medicine
PROC: 0Y6Q0Z0 Detachment at Left 1st Toe, Complete, Open Approach (ICD-10-PCS; principal; 2020-02-17)
DX: E11.69 Type 2 diabetes mellitus with other specified complication (principal); E11.52 Type 2 diabetes mellitus with diabetic peripheral angiopathy with gangrene; E44.0 Moderate protein-calorie malnutrition; L03.116 Cellulitis of left lower limb; I96 Gangrene, not elsewhere classified; M86.8X7 Other osteomyelitis, ankle and foot; E11.621 Type 2 diabetes mellitus with foot ulcer; L97.529 Non-pressure chronic ulcer of other part of left foot with unspecified severity; E11.00 Type 2 diabetes mellitus with hyperosmolarity without nonketotic hyperglycemic-hyperosmolar coma (NKHHC); F32.9 Major depressive disorder, single episode, unspecified; F17.210 Nicotine dependence, cigarettes, uncomplicated; Z96.1 Presence of intraocular lens; Z20.828 Contact with and (suspected) exposure to other viral communicable diseases; Z90.710 Acquired absence of both cervix and uterus; Z90.49 Acquired absence of other specified parts of digestive tract; Z79.899 Other long term (current) drug therapy; Z98.42 Cataract extraction status, left eye; Z98.41 Cataract extraction status, right eye; Z88.5 Allergy status to narcotic agent; Z88.8 Allergy status to other drugs, medicaments and biological substances; Z79.84 Long term (current) use of oral hypoglycemic drugs; Z68.28 Body mass index [BMI] 28.0-28.9, adult

== ENCOUNTER → 2020-03-01 | Outpatient (CLI) | payer OTHER ==
[~2020-03-01] MED LIST changes: +FLAGYL500 M1 PO; +GABAPENTIN800 M1 PO; +KEFLEX500 M1 PO
== END ==
LOC: M.WC 12:50
PROVIDERS: ATTEND Podiatrist Foot & Ankle Surgery
DX: T87.81 Dehiscence of amputation stump (principal); E11.621 Type 2 diabetes mellitus with foot ulcer; L97.521 Non-pressure chronic ulcer of other part of left foot limited to breakdown of skin; E11.69 Type 2 diabetes mellitus with other specified complication; M86.372 Chronic multifocal osteomyelitis, left ankle and foot; E11.52 Type 2 diabetes mellitus with diabetic peripheral angiopathy with gangrene; I96 Gangrene, not elsewhere classified; E11.42 Type 2 diabetes mellitus with diabetic polyneuropathy; J45.909 Unspecified asthma, uncomplicated; M19.90 Unspecified osteoarthritis, unspecified site; F32.9 Major depressive disorder, single episode, unspecified; Z87.891 Personal history of nicotine dependence; Z89.411 Acquired absence of right great toe; Z89.421 Acquired absence of other right toe(s); Z90.710 Acquired absence of both cervix and uterus; Z90.49 Acquired absence of other specified parts of digestive tract; Z98.49 Cataract extraction status, unspecified eye; Z79.4 Long term (current) use of insulin; Y83.5 Amputation of limb(s) as the cause of abnormal reaction of the patient, or of later complication, without mention of misadventure at the time of the procedure

== ENCOUNTER → 2020-03-08 | Outpatient (CLI) | payer OTHER | LOC: M.WC 12:40 | PROVIDERS: ATTEND Podiatrist Foot & Ankle Surgery | DX: T87.81 Dehiscence of amputation stump (principal); E11.621 Type 2 diabetes mellitus with foot ulcer; L97.522 Non-pressure chronic ulcer of other part of left foot with fat layer exposed; E11.69 Type 2 diabetes mellitus with other specified complication; M86.372 Chronic multifocal osteomyelitis, left ankle and foot; E11.52 Type 2 diabetes mellitus with diabetic peripheral angiopathy with gangrene; I96 Gangrene, not elsewhere classified; E11.42 Type 2 diabetes mellitus with diabetic polyneuropathy; J45.909 Unspecified asthma, uncomplicated; M19.90 Unspecified osteoarthritis, unspecified site; F32.9 Major depressive disorder, single episode, unspecified; Z87.891 Personal history of nicotine dependence; Z89.421 Acquired absence of other right toe(s); Z90.710 Acquired absence of both cervix and uterus; Z90.49 Acquired absence of other specified parts of digestive tract; Z98.49 Cataract extraction status, unspecified eye; Z79.4 Long term (current) use of insulin; Y83.5 Amputation of limb(s) as the cause of abnormal reaction of the patient, or of later complication, without mention of misadventure at the time of the procedure ==

== ENCOUNTER → 2020-03-15 | Outpatient (CLI) | payer OTHER | LOC: M.WC 12:32 | PROVIDERS: ATTEND Podiatrist Foot & Ankle Surgery | DX: T87.81 Dehiscence of amputation stump (principal); E11.621 Type 2 diabetes mellitus with foot ulcer; L97.522 Non-pressure chronic ulcer of other part of left foot with fat layer exposed; E11.69 Type 2 diabetes mellitus with other specified complication; M86.372 Chronic multifocal osteomyelitis, left ankle and foot; E11.52 Type 2 diabetes mellitus with diabetic peripheral angiopathy with gangrene; I96 Gangrene, not elsewhere classified; E11.42 Type 2 diabetes mellitus with diabetic polyneuropathy; J45.909 Unspecified asthma, uncomplicated; M19.90 Unspecified osteoarthritis, unspecified site; F32.9 Major depressive disorder, single episode, unspecified; Z87.891 Personal history of nicotine dependence; Z89.421 Acquired absence of other right toe(s); Z79.4 Long term (current) use of insulin; Y83.5 Amputation of limb(s) as the cause of abnormal reaction of the patient, or of later complication, without mention of misadventure at the time of the procedure ==

== ENCOUNTER → 2020-03-29 | Day surgery (SDC) | payer OTHER ==
[~2020-03-29] MED LIST changes: +NOVOLOG100 UNIT/1 SUBQ
[2020-03-29 14:28] LABS: HEMATOCRIT 38.2 % (37.0-47.0); HEMOGLOBIN 12.6 gm/dL (12.0-15.0); MCH 28.9 pg (26.0-34.0); MCV 87.5 fL (80.0-100.0); RBC 4.37 mil/uL (4.20-5.00); RDW-CV 15.8 % (10.5-14.5); WBC 6.1 thou/uL (4.0-11.0)
[2020-03-29 14:35] LABS: CALCIUM 9.5 mg/dL (8.5-10.1); CREATININE 0.8 mg/dL (0.6-1.3); POTASSIUM 4.3 mmol/L (3.5-5.1)
--- NOTE | 2020-03-29 14:42 | NUR ---
RIGHT BASILIC VESSEL ACCESSED FOR 4 IRANIAN SINGLE LUMEN PICC. LINE PRE-TRIMMED TO 41 CM AND ADVANCED TO THE ZERO MAICOL WITH NO RESISTANCE MET. UPPER ARM CIRCUMFERENCE ABOVE INSERTION SITE= 14". sherlock magnet and 3CG CONFIRMATION OF TIP TERMINATION AT THE CAVOATRIAL JUCTION APPRECIATED. GUDIEWIRE REMOVED, LINE FLUSHED AND INSERTION SITE DRESSED. REPORT GIVEN TO BRANDAN RICHMOND.
--- NOTE | 2020-04-05 12:42 | OP ---
[address] [address] OPERATIVE REPORT Name: GALEN OZUNA Room: [facility] Eris#: [id number] Admission: 03/29/20 Attend Phys: Kenji López DPM Discharge: Date of : 53 Report #: [id number] THIS REPORT FOR: cc: Sp Benedict Russell J. DO ~ Hanon, Daniel R. DPM DATE OF SERVICE: 03/29/2020 SURGEON: Kenji López DPM PREOPERATIVE DIAGNOSIS: Osteomyelitis, left distal first metatarsal with nonhealing wound. POSTOPERATIVE DIAGNOSIS: Osteomyelitis, left distal first metatarsal with nonhealing wound. PROCEDURE: Resection of left distal first metatarsal with soft tissue debridement and primary closure with skin flap. ANESTHESIA: MAC. INJECTABLES: 30 mL of a 1:1 mixture of 0.5% Marcaine plain and 1% lidocaine plain. ESTIMATED BLOOD LOSS: Minimal. SUTURES: 3-0 nylon. SPECIMENS: Left first metatarsal. CULTURES: 1. Bone, left first metatarsal, aerobic and anaerobic. 2. Soft tissue, left foot, aerobic and anaerobic, specimens of left distal first metatarsal and sesamoids. ESTIMATED BLOOD LOSS: Minimal. COMPLICATIONS: None. DESCRIPTION OF PROCEDURE: The patient was brought to the OR and placed on the table supine with induction of MAC anesthesia. A well-padded left ankle tourniquet was placed and local anesthetic block was given to the foot and extremity was exsanguinated with inflation of the tourniquet. A #10 blade was utilized to dissect out the distal first metatarsal, which was transected roughly at the midshaft region. The distal first metatarsal was necrotic, [place] [address] OPERATIVE REPORT Name: GALEN OZUNA Room: [facility] Eris#: [id number] Admission: 03/29/20 Attend Phys: Kenji López DPM Discharge: Date of : 53 Report #: [id number] desiccated and discolored with soft bone. I sent a food service representative portion for aerobic and anaerobic bone cultures and some of the soft tissue for the same. The metatarsal segment and sesamoids were sent for pathology. I thoroughly debrided the wound and remodeled the skin edges and mobilized the plantar medial pedicle skin flap dorsolaterally and sutured it. I flushed the wound with sterile saline and dried. Utilizing electrocautery for hemostasis, the skin was closed in simple interrupted fashion with 3-0 nylon. Tourniquet was deflated and vascular status returned to the foot and a sterile bandage was applied and the patient left the OR with no pain or complications noted. <ELECTRONICALLY SIGNED> By: Kenji López DPM 04/05/20 1242 1045 1113Dbassam López DPM /shefali
--- NOTE | 2020-04-10 13:07 | PATH ---
[address] [address] PATHOLOGY RPT PROCEDURE Name: GALEN OZUNA Room: [facility] [place].#: [id number] Admission: 03/29/20 Date of : 53 Discharge: Report #: [id number] Path Case #: [id number] [facility] Accession Number: [id number] . 01 Material submitted: . foot - LEFT 1ST METATARSAL SESAMOIDS. Modifiers: left, first . 01 Clinical history: . OSTEOMYELITIS LEFT FOOT . 02 Diagnosis: Bone and soft tissue "left first metatarsal sesamoids", excision: - Chronic osteomyelitis, with associated acute and chronic inflammation of adjacent soft tissue. - Metatarsal bone transection margin negative for osteomyelitis. - Negative for malignancy. (QUINTON:alma; 04/07/2020) [facility] 04/10/2020 1207 Local . 02 Electronically signed: . Andrew Reilly MD, Pathologist NPI- [id number] . 01 Gross description: . Received in formalin labeled "left first metatarsal sesamoids" are 2 irregular portions of bone and soft tissue consisting of the metatarsal head measuring 3.9 x 1.9 x 1.9 cm and the sesamoids measuring 4.1 x 3.2 x 1.6 cm. The metatarsal has even transected margin and a opposing disarticulated end. The specimen is sectioned to reveal a liu-yellow calcified cut surface. Agricultural Education Professor sections of the specimen are submitted after decalcification in cassettes A1-A2.([facility]; 03/31/2020) . After inital microscopic examination, the transected section of the metatarsal is inked black. An additional longitudinal cross section is submitted after decalification in cassettes A3-A4. GZA/GZA 04/03/2020 1741 Local . 02 Pathologist provided ICD-10: M86.672, M79.89 . 02 CPT . 579431, 361339 Specimen Comment: A courtesy copy of this report has been sent to [phone] Specimen Comment: [id number] Specimen Comment: Report sent to / DR BYRD Performed at: 01 [place] [address] PATHOLOGY RPT PROCEDURE Name: GALEN OZUNA [id number] Admission: 03/29/20 Date of : 53 Discharge: Report #: [id number] Path Case #: [id number] [address], [place], [place] [id number] MD Jayro Powell MD Phone: [phone] Performed at: [address] [id number] MD Frantz Miranda MD Phone: [phone]
== END | disposition home or self-care (01) ==
LOC: M.SUR 07:09
PROVIDERS: ATTEND Podiatrist Foot & Ankle Surgery
DX: M86.672 Other chronic osteomyelitis, left ankle and foot (principal); M79.89 Other specified soft tissue disorders; S91.302A Unspecified open wound, left foot, initial encounter; E11.9 Type 2 diabetes mellitus without complications; F32.9 Major depressive disorder, single episode, unspecified; Z98.890 Other specified postprocedural states; Z79.899 Other long term (current) drug therapy; Z98.41 Cataract extraction status, right eye; Z98.42 Cataract extraction status, left eye; Z20.822 Contact with and (suspected) exposure to COVID-19; Z88.6 Allergy status to analgesic agent; Z88.8 Allergy status to other drugs, medicaments and biological substances; X58.XXXA Exposure to other specified factors, initial encounter; Y93.89 Activity, other specified; Y92.89 Other specified places as the place of occurrence of the external cause; Y99.8 Other external cause status

== ENCOUNTER → 2020-04-05 | Outpatient (CLI) | payer OTHER | LOC: M.WC 13:49 | PROVIDERS: ATTEND Podiatrist Foot & Ankle Surgery | DX: T87.89 Other complications of amputation stump (principal); T81.89XA Other complications of procedures, not elsewhere classified, initial encounter; E11.621 Type 2 diabetes mellitus with foot ulcer; L97.522 Non-pressure chronic ulcer of other part of left foot with fat layer exposed; E11.69 Type 2 diabetes mellitus with other specified complication; M86.372 Chronic multifocal osteomyelitis, left ankle and foot; E11.52 Type 2 diabetes mellitus with diabetic peripheral angiopathy with gangrene; I96 Gangrene, not elsewhere classified; E11.42 Type 2 diabetes mellitus with diabetic polyneuropathy; J45.909 Unspecified asthma, uncomplicated; M19.90 Unspecified osteoarthritis, unspecified site; F32.9 Major depressive disorder, single episode, unspecified; Z87.891 Personal history of nicotine dependence; Z89.421 Acquired absence of other right toe(s); Z79.4 Long term (current) use of insulin; Y92.238 Other place in hospital as the place of occurrence of the external cause; Y83.8 Other surgical procedures as the cause of abnormal reaction of the patient, or of later complication, without mention of misadventure at the time of the procedure; Y83.5 Amputation of limb(s) as the cause of abnormal reaction of the patient, or of later complication, without mention of misadventure at the time of the procedure ==

== ENCOUNTER → 2020-04-19 | Outpatient (CLI) | payer OTHER ==
[~2020-04-19] VITALS: Ht 172.7 cm; Wt 75.8 kg
[~2020-04-19] MED LIST changes: +HUMALOG JU100 UNIT/1 SUBQ; +PLAVIX 75 MG TA75 MG PO
== END ==
LOC: M.WC 04-12 14:00 → M.ERS 14:32 → M.WC 14:32
PROVIDERS: ATTEND Emergency Medicine Emergency Medical Services
DX: E16.2 Hypoglycemia, unspecified (principal)

== ENCOUNTER → 2020-04-26 | Outpatient (CLI) | payer OTHER | LOC: M.WC 13:57 | PROVIDERS: ATTEND Podiatrist Foot & Ankle Surgery | DX: T81.89XD Other complications of procedures, not elsewhere classified, subsequent encounter (principal); E11.621 Type 2 diabetes mellitus with foot ulcer; L97.526 Non-pressure chronic ulcer of other part of left foot with bone involvement without evidence of necrosis; E11.69 Type 2 diabetes mellitus with other specified complication; M86.372 Chronic multifocal osteomyelitis, left ankle and foot; E11.52 Type 2 diabetes mellitus with diabetic peripheral angiopathy with gangrene; I96 Gangrene, not elsewhere classified; E11.42 Type 2 diabetes mellitus with diabetic polyneuropathy; J45.909 Unspecified asthma, uncomplicated; M19.90 Unspecified osteoarthritis, unspecified site; F32.9 Major depressive disorder, single episode, unspecified; Z87.891 Personal history of nicotine dependence; Z89.421 Acquired absence of other right toe(s); Y83.8 Other surgical procedures as the cause of abnormal reaction of the patient, or of later complication, without mention of misadventure at the time of the procedure ==

== ENCOUNTER → 2020-05-10 | Outpatient (CLI) | payer OTHER | LOC: M.WC 14:00 | PROVIDERS: ATTEND Podiatrist Foot & Ankle Surgery | DX: T87.81 Dehiscence of amputation stump (principal); E11.621 Type 2 diabetes mellitus with foot ulcer; L97.526 Non-pressure chronic ulcer of other part of left foot with bone involvement without evidence of necrosis; L97.511 Non-pressure chronic ulcer of other part of right foot limited to breakdown of skin; E11.52 Type 2 diabetes mellitus with diabetic peripheral angiopathy with gangrene; I96 Gangrene, not elsewhere classified; E11.69 Type 2 diabetes mellitus with other specified complication; M86.372 Chronic multifocal osteomyelitis, left ankle and foot; E11.42 Type 2 diabetes mellitus with diabetic polyneuropathy; J45.909 Unspecified asthma, uncomplicated; J42 Unspecified chronic bronchitis; M19.90 Unspecified osteoarthritis, unspecified site; F32.9 Major depressive disorder, single episode, unspecified; Z87.891 Personal history of nicotine dependence; Y83.5 Amputation of limb(s) as the cause of abnormal reaction of the patient, or of later complication, without mention of misadventure at the time of the procedure ==

== ENCOUNTER → 2020-05-17 | Outpatient (CLI) | payer OTHER | LOC: M.WC 13:52 | PROVIDERS: ATTEND Podiatrist Foot & Ankle Surgery | DX: T87.81 Dehiscence of amputation stump (principal); E11.621 Type 2 diabetes mellitus with foot ulcer; L97.526 Non-pressure chronic ulcer of other part of left foot with bone involvement without evidence of necrosis; L97.511 Non-pressure chronic ulcer of other part of right foot limited to breakdown of skin; L84 Corns and callosities; E11.52 Type 2 diabetes mellitus with diabetic peripheral angiopathy with gangrene; I96 Gangrene, not elsewhere classified; E11.69 Type 2 diabetes mellitus with other specified complication; M86.372 Chronic multifocal osteomyelitis, left ankle and foot; E11.42 Type 2 diabetes mellitus with diabetic polyneuropathy; J45.909 Unspecified asthma, uncomplicated; J42 Unspecified chronic bronchitis; M19.90 Unspecified osteoarthritis, unspecified site; F32.9 Major depressive disorder, single episode, unspecified; Z87.891 Personal history of nicotine dependence; Y83.5 Amputation of limb(s) as the cause of abnormal reaction of the patient, or of later complication, without mention of misadventure at the time of the procedure ==

== ENCOUNTER → 2020-05-24 | Outpatient (CLI) | payer OTHER | LOC: M.WC 13:44 | PROVIDERS: ATTEND Podiatrist Foot & Ankle Surgery | DX: T87.89 Other complications of amputation stump (principal); E11.621 Type 2 diabetes mellitus with foot ulcer; L97.526 Non-pressure chronic ulcer of other part of left foot with bone involvement without evidence of necrosis; L97.511 Non-pressure chronic ulcer of other part of right foot limited to breakdown of skin; L84 Corns and callosities; E11.52 Type 2 diabetes mellitus with diabetic peripheral angiopathy with gangrene; I96 Gangrene, not elsewhere classified; E11.69 Type 2 diabetes mellitus with other specified complication; M86.372 Chronic multifocal osteomyelitis, left ankle and foot; E11.42 Type 2 diabetes mellitus with diabetic polyneuropathy; J45.909 Unspecified asthma, uncomplicated; J42 Unspecified chronic bronchitis; M19.90 Unspecified osteoarthritis, unspecified site; F32.9 Major depressive disorder, single episode, unspecified; Z87.891 Personal history of nicotine dependence; Z89.421 Acquired absence of other right toe(s); Y83.5 Amputation of limb(s) as the cause of abnormal reaction of the patient, or of later complication, without mention of misadventure at the time of the procedure ==

== ENCOUNTER → 2020-05-31 | Outpatient (CLI) | payer OTHER | LOC: M.WC 13:46 | PROVIDERS: ATTEND Podiatrist Foot & Ankle Surgery | DX: T87.89 Other complications of amputation stump (principal); E11.621 Type 2 diabetes mellitus with foot ulcer; L97.526 Non-pressure chronic ulcer of other part of left foot with bone involvement without evidence of necrosis; L97.511 Non-pressure chronic ulcer of other part of right foot limited to breakdown of skin; L84 Corns and callosities; E11.52 Type 2 diabetes mellitus with diabetic peripheral angiopathy with gangrene; I96 Gangrene, not elsewhere classified; E11.69 Type 2 diabetes mellitus with other specified complication; M86.372 Chronic multifocal osteomyelitis, left ankle and foot; E11.42 Type 2 diabetes mellitus with diabetic polyneuropathy; J45.909 Unspecified asthma, uncomplicated; J42 Unspecified chronic bronchitis; M19.90 Unspecified osteoarthritis, unspecified site; F32.9 Major depressive disorder, single episode, unspecified; Z87.891 Personal history of nicotine dependence; Z89.421 Acquired absence of other right toe(s); Y83.5 Amputation of limb(s) as the cause of abnormal reaction of the patient, or of later complication, without mention of misadventure at the time of the procedure ==

== ENCOUNTER → 2020-06-07 | Outpatient (CLI) | payer OTHER | LOC: M.WC 13:58 | PROVIDERS: ATTEND Podiatrist Foot & Ankle Surgery | DX: T87.89 Other complications of amputation stump (principal); E11.621 Type 2 diabetes mellitus with foot ulcer; L97.526 Non-pressure chronic ulcer of other part of left foot with bone involvement without evidence of necrosis; L97.511 Non-pressure chronic ulcer of other part of right foot limited to breakdown of skin; L84 Corns and callosities; E11.52 Type 2 diabetes mellitus with diabetic peripheral angiopathy with gangrene; I96 Gangrene, not elsewhere classified; E11.69 Type 2 diabetes mellitus with other specified complication; M86.372 Chronic multifocal osteomyelitis, left ankle and foot; E11.42 Type 2 diabetes mellitus with diabetic polyneuropathy; J45.909 Unspecified asthma, uncomplicated; J42 Unspecified chronic bronchitis; M19.90 Unspecified osteoarthritis, unspecified site; F32.9 Major depressive disorder, single episode, unspecified; Z87.891 Personal history of nicotine dependence; Z89.421 Acquired absence of other right toe(s); Y83.5 Amputation of limb(s) as the cause of abnormal reaction of the patient, or of later complication, without mention of misadventure at the time of the procedure ==

== ENCOUNTER → 2020-06-14 | Outpatient (CLI) | payer OTHER | LOC: M.WC 13:45 | PROVIDERS: ATTEND Podiatrist Foot & Ankle Surgery | DX: T87.89 Other complications of amputation stump (principal); E11.621 Type 2 diabetes mellitus with foot ulcer; L97.526 Non-pressure chronic ulcer of other part of left foot with bone involvement without evidence of necrosis; E11.52 Type 2 diabetes mellitus with diabetic peripheral angiopathy with gangrene; I96 Gangrene, not elsewhere classified; E11.69 Type 2 diabetes mellitus with other specified complication; M86.472 Chronic osteomyelitis with draining sinus, left ankle and foot; E11.42 Type 2 diabetes mellitus with diabetic polyneuropathy; J45.909 Unspecified asthma, uncomplicated; J42 Unspecified chronic bronchitis; M19.90 Unspecified osteoarthritis, unspecified site; F32.9 Major depressive disorder, single episode, unspecified; Z87.891 Personal history of nicotine dependence; Z89.421 Acquired absence of other right toe(s); Y83.5 Amputation of limb(s) as the cause of abnormal reaction of the patient, or of later complication, without mention of misadventure at the time of the procedure ==

== ENCOUNTER → 2020-06-21 | Outpatient (CLI) | payer OTHER | LOC: M.WC 13:11 | PROVIDERS: ATTEND Podiatrist Foot & Ankle Surgery | DX: T87.89 Other complications of amputation stump (principal); E11.621 Type 2 diabetes mellitus with foot ulcer; L97.526 Non-pressure chronic ulcer of other part of left foot with bone involvement without evidence of necrosis; E11.52 Type 2 diabetes mellitus with diabetic peripheral angiopathy with gangrene; I96 Gangrene, not elsewhere classified; E11.69 Type 2 diabetes mellitus with other specified complication; M86.472 Chronic osteomyelitis with draining sinus, left ankle and foot; E11.42 Type 2 diabetes mellitus with diabetic polyneuropathy; J45.909 Unspecified asthma, uncomplicated; J42 Unspecified chronic bronchitis; M19.90 Unspecified osteoarthritis, unspecified site; F32.9 Major depressive disorder, single episode, unspecified; Z87.891 Personal history of nicotine dependence; Z89.421 Acquired absence of other right toe(s); Y83.5 Amputation of limb(s) as the cause of abnormal reaction of the patient, or of later complication, without mention of misadventure at the time of the procedure ==

== ENCOUNTER → 2020-06-26 | Outpatient (CLI) | payer OTHER | LOC: M.WC 07:27 | PROVIDERS: ATTEND Family Medicine | DX: E11.69 Type 2 diabetes mellitus with other specified complication (principal); M86.472 Chronic osteomyelitis with draining sinus, left ankle and foot; T87.89 Other complications of amputation stump; E11.621 Type 2 diabetes mellitus with foot ulcer; L97.526 Non-pressure chronic ulcer of other part of left foot with bone involvement without evidence of necrosis; E11.52 Type 2 diabetes mellitus with diabetic peripheral angiopathy with gangrene; I96 Gangrene, not elsewhere classified; E11.42 Type 2 diabetes mellitus with diabetic polyneuropathy; H61.23 Impacted cerumen, bilateral; J45.909 Unspecified asthma, uncomplicated; J42 Unspecified chronic bronchitis; M19.90 Unspecified osteoarthritis, unspecified site; F32.9 Major depressive disorder, single episode, unspecified; Z87.891 Personal history of nicotine dependence; Z89.421 Acquired absence of other right toe(s); Z89.411 Acquired absence of right great toe; Y83.5 Amputation of limb(s) as the cause of abnormal reaction of the patient, or of later complication, without mention of misadventure at the time of the procedure ==

== ENCOUNTER → 2020-06-27 | Outpatient (CLI) | payer OTHER | LOC: M.WC 07:52 | PROVIDERS: ATTEND Emergency Medicine Undersea and Hyperbaric Medicine | DX: E11.69 Type 2 diabetes mellitus with other specified complication (principal); M86.472 Chronic osteomyelitis with draining sinus, left ankle and foot; T87.89 Other complications of amputation stump; E11.621 Type 2 diabetes mellitus with foot ulcer; L97.526 Non-pressure chronic ulcer of other part of left foot with bone involvement without evidence of necrosis; E11.52 Type 2 diabetes mellitus with diabetic peripheral angiopathy with gangrene; I96 Gangrene, not elsewhere classified; E11.42 Type 2 diabetes mellitus with diabetic polyneuropathy; H61.23 Impacted cerumen, bilateral; J45.909 Unspecified asthma, uncomplicated; J42 Unspecified chronic bronchitis; M19.90 Unspecified osteoarthritis, unspecified site; F32.9 Major depressive disorder, single episode, unspecified; Z87.891 Personal history of nicotine dependence; Z89.421 Acquired absence of other right toe(s); Z89.411 Acquired absence of right great toe; Y83.5 Amputation of limb(s) as the cause of abnormal reaction of the patient, or of later complication, without mention of misadventure at the time of the procedure ==

== ENCOUNTER → 2020-06-28 | Outpatient (CLI) | payer OTHER | LOC: M.WC 07:41 | PROVIDERS: ATTEND Family Medicine | DX: E11.69 Type 2 diabetes mellitus with other specified complication (principal); M86.472 Chronic osteomyelitis with draining sinus, left ankle and foot; T87.89 Other complications of amputation stump; E11.621 Type 2 diabetes mellitus with foot ulcer; L97.526 Non-pressure chronic ulcer of other part of left foot with bone involvement without evidence of necrosis; E11.52 Type 2 diabetes mellitus with diabetic peripheral angiopathy with gangrene; I96 Gangrene, not elsewhere classified; E11.42 Type 2 diabetes mellitus with diabetic polyneuropathy; H61.23 Impacted cerumen, bilateral; J45.909 Unspecified asthma, uncomplicated; J42 Unspecified chronic bronchitis; M19.90 Unspecified osteoarthritis, unspecified site; F32.9 Major depressive disorder, single episode, unspecified; Z87.891 Personal history of nicotine dependence; Z89.421 Acquired absence of other right toe(s); Z89.411 Acquired absence of right great toe; Y83.5 Amputation of limb(s) as the cause of abnormal reaction of the patient, or of later complication, without mention of misadventure at the time of the procedure ==

== ENCOUNTER → 2020-06-30 | Outpatient (CLI) | payer OTHER | LOC: M.WC 07:44 | PROVIDERS: ATTEND Family Medicine | DX: E11.69 Type 2 diabetes mellitus with other specified complication (principal); M86.372 Chronic multifocal osteomyelitis, left ankle and foot; T87.89 Other complications of amputation stump; E11.621 Type 2 diabetes mellitus with foot ulcer; L97.526 Non-pressure chronic ulcer of other part of left foot with bone involvement without evidence of necrosis; E11.52 Type 2 diabetes mellitus with diabetic peripheral angiopathy with gangrene; I96 Gangrene, not elsewhere classified; E11.42 Type 2 diabetes mellitus with diabetic polyneuropathy; H61.23 Impacted cerumen, bilateral; J45.909 Unspecified asthma, uncomplicated; J42 Unspecified chronic bronchitis; M19.90 Unspecified osteoarthritis, unspecified site; F32.9 Major depressive disorder, single episode, unspecified; Z87.891 Personal history of nicotine dependence; Z89.421 Acquired absence of other right toe(s); Z89.411 Acquired absence of right great toe; Y83.5 Amputation of limb(s) as the cause of abnormal reaction of the patient, or of later complication, without mention of misadventure at the time of the procedure ==

== ENCOUNTER → 2020-07-03 | Outpatient (CLI) | payer OTHER | LOC: M.WC 06-30 10:30 | PROVIDERS: ATTEND Surgery | DX: E11.69 Type 2 diabetes mellitus with other specified complication (principal); M86.372 Chronic multifocal osteomyelitis, left ankle and foot; T87.89 Other complications of amputation stump; E11.621 Type 2 diabetes mellitus with foot ulcer; L97.526 Non-pressure chronic ulcer of other part of left foot with bone involvement without evidence of necrosis; E11.52 Type 2 diabetes mellitus with diabetic peripheral angiopathy with gangrene; I96 Gangrene, not elsewhere classified; E11.42 Type 2 diabetes mellitus with diabetic polyneuropathy; H61.23 Impacted cerumen, bilateral; J45.909 Unspecified asthma, uncomplicated; J42 Unspecified chronic bronchitis; M19.90 Unspecified osteoarthritis, unspecified site; F32.9 Major depressive disorder, single episode, unspecified; Z87.891 Personal history of nicotine dependence; Z89.421 Acquired absence of other right toe(s); Z89.411 Acquired absence of right great toe; Y83.5 Amputation of limb(s) as the cause of abnormal reaction of the patient, or of later complication, without mention of misadventure at the time of the procedure ==

== ENCOUNTER → 2020-07-04 | Outpatient (CLI) | payer OTHER | LOC: M.WC 07:42 | PROVIDERS: ATTEND Emergency Medicine Undersea and Hyperbaric Medicine | DX: E11.69 Type 2 diabetes mellitus with other specified complication (principal); M86.372 Chronic multifocal osteomyelitis, left ankle and foot; E11.621 Type 2 diabetes mellitus with foot ulcer; L97.526 Non-pressure chronic ulcer of other part of left foot with bone involvement without evidence of necrosis; E11.52 Type 2 diabetes mellitus with diabetic peripheral angiopathy with gangrene; I96 Gangrene, not elsewhere classified; E11.42 Type 2 diabetes mellitus with diabetic polyneuropathy; J45.909 Unspecified asthma, uncomplicated; J42 Unspecified chronic bronchitis; M19.90 Unspecified osteoarthritis, unspecified site; F32.9 Major depressive disorder, single episode, unspecified; Z87.891 Personal history of nicotine dependence; Z89.421 Acquired absence of other right toe(s); Z89.411 Acquired absence of right great toe ==

== ENCOUNTER → 2020-07-05 | Outpatient (CLI) | payer OTHER | LOC: M.WC 08:00 | PROVIDERS: ATTEND Podiatrist Foot & Ankle Surgery | DX: T87.89 Other complications of amputation stump (principal); E11.621 Type 2 diabetes mellitus with foot ulcer; L97.526 Non-pressure chronic ulcer of other part of left foot with bone involvement without evidence of necrosis; E11.52 Type 2 diabetes mellitus with diabetic peripheral angiopathy with gangrene; E11.69 Type 2 diabetes mellitus with other specified complication; M86.372 Chronic multifocal osteomyelitis, left ankle and foot; I96 Gangrene, not elsewhere classified; E11.42 Type 2 diabetes mellitus with diabetic polyneuropathy; H61.23 Impacted cerumen, bilateral; J45.909 Unspecified asthma, uncomplicated; J42 Unspecified chronic bronchitis; M19.90 Unspecified osteoarthritis, unspecified site; F32.9 Major depressive disorder, single episode, unspecified; Z87.891 Personal history of nicotine dependence; Z89.421 Acquired absence of other right toe(s); Z89.411 Acquired absence of right great toe; Y83.5 Amputation of limb(s) as the cause of abnormal reaction of the patient, or of later complication, without mention of misadventure at the time of the procedure ==

== ENCOUNTER → 2020-07-06 | Outpatient (CLI) | payer OTHER | LOC: M.WC 07:35 | PROVIDERS: ATTEND Family Medicine | DX: M86.372 Chronic multifocal osteomyelitis, left ankle and foot (principal); E11.69 Type 2 diabetes mellitus with other specified complication; E11.52 Type 2 diabetes mellitus with diabetic peripheral angiopathy with gangrene; I96 Gangrene, not elsewhere classified; E11.621 Type 2 diabetes mellitus with foot ulcer; L97.521 Non-pressure chronic ulcer of other part of left foot limited to breakdown of skin; E11.42 Type 2 diabetes mellitus with diabetic polyneuropathy; J45.909 Unspecified asthma, uncomplicated; M19.90 Unspecified osteoarthritis, unspecified site; F32.9 Major depressive disorder, single episode, unspecified; Z87.891 Personal history of nicotine dependence; Z89.411 Acquired absence of right great toe; Z89.421 Acquired absence of other right toe(s) ==

== ENCOUNTER → 2020-07-07 | Outpatient (CLI) | payer OTHER | LOC: M.WC 07:39 | DX: T87.89 Other complications of amputation stump (principal); E11.621 Type 2 diabetes mellitus with foot ulcer; L97.526 Non-pressure chronic ulcer of other part of left foot with bone involvement without evidence of necrosis; E11.42 Type 2 diabetes mellitus with diabetic polyneuropathy; J45.909 Unspecified asthma, uncomplicated; M19.90 Unspecified osteoarthritis, unspecified site; F32.9 Major depressive disorder, single episode, unspecified; Z87.891 Personal history of nicotine dependence; Y83.5 Amputation of limb(s) as the cause of abnormal reaction of the patient, or of later complication, without mention of misadventure at the time of the procedure ==

== ENCOUNTER → 2020-07-10 | Outpatient (CLI) | payer OTHER | LOC: M.WC 07:59 | PROVIDERS: ATTEND Internal Medicine | DX: E11.69 Type 2 diabetes mellitus with other specified complication (principal); M86.372 Chronic multifocal osteomyelitis, left ankle and foot; E11.52 Type 2 diabetes mellitus with diabetic peripheral angiopathy with gangrene; I96 Gangrene, not elsewhere classified; E11.621 Type 2 diabetes mellitus with foot ulcer; L97.521 Non-pressure chronic ulcer of other part of left foot limited to breakdown of skin; E11.42 Type 2 diabetes mellitus with diabetic polyneuropathy; J45.909 Unspecified asthma, uncomplicated; M19.90 Unspecified osteoarthritis, unspecified site; F32.9 Major depressive disorder, single episode, unspecified; Z87.891 Personal history of nicotine dependence; Z89.411 Acquired absence of right great toe; Z89.421 Acquired absence of other right toe(s) ==

== ENCOUNTER → 2020-07-11 | Outpatient (CLI) | payer OTHER | LOC: M.WC 07:28 | PROVIDERS: ATTEND Emergency Medicine Undersea and Hyperbaric Medicine | DX: E11.69 Type 2 diabetes mellitus with other specified complication (principal); M86.372 Chronic multifocal osteomyelitis, left ankle and foot; E11.52 Type 2 diabetes mellitus with diabetic peripheral angiopathy with gangrene; I96 Gangrene, not elsewhere classified; E11.621 Type 2 diabetes mellitus with foot ulcer; L97.521 Non-pressure chronic ulcer of other part of left foot limited to breakdown of skin; E11.42 Type 2 diabetes mellitus with diabetic polyneuropathy; J45.909 Unspecified asthma, uncomplicated; M19.90 Unspecified osteoarthritis, unspecified site; F32.9 Major depressive disorder, single episode, unspecified; Z87.891 Personal history of nicotine dependence; Z89.411 Acquired absence of right great toe; Z89.421 Acquired absence of other right toe(s) ==

== ENCOUNTER → 2020-07-26 | Outpatient (CLI) | payer OTHER | LOC: M.WC 12:50 | PROVIDERS: ATTEND Podiatrist Foot & Ankle Surgery | DX: E11.621 Type 2 diabetes mellitus with foot ulcer (principal); L97.526 Non-pressure chronic ulcer of other part of left foot with bone involvement without evidence of necrosis; E11.52 Type 2 diabetes mellitus with diabetic peripheral angiopathy with gangrene; I96 Gangrene, not elsewhere classified; E11.69 Type 2 diabetes mellitus with other specified complication; M86.372 Chronic multifocal osteomyelitis, left ankle and foot; E11.42 Type 2 diabetes mellitus with diabetic polyneuropathy; J45.909 Unspecified asthma, uncomplicated; J42 Unspecified chronic bronchitis; M19.90 Unspecified osteoarthritis, unspecified site; F32.9 Major depressive disorder, single episode, unspecified; Z89.421 Acquired absence of other right toe(s); Z89.411 Acquired absence of right great toe; Z89.412 Acquired absence of left great toe ==

== ENCOUNTER → 2020-08-02 | Outpatient (CLI) | payer OTHER | LOC: M.WC 12:49 | PROVIDERS: ATTEND Podiatrist Foot & Ankle Surgery | DX: E11.621 Type 2 diabetes mellitus with foot ulcer (principal); L97.526 Non-pressure chronic ulcer of other part of left foot with bone involvement without evidence of necrosis; E11.52 Type 2 diabetes mellitus with diabetic peripheral angiopathy with gangrene; I96 Gangrene, not elsewhere classified; E11.69 Type 2 diabetes mellitus with other specified complication; M86.372 Chronic multifocal osteomyelitis, left ankle and foot; E11.42 Type 2 diabetes mellitus with diabetic polyneuropathy; J45.909 Unspecified asthma, uncomplicated; J42 Unspecified chronic bronchitis; M19.90 Unspecified osteoarthritis, unspecified site; F32.9 Major depressive disorder, single episode, unspecified; Z89.421 Acquired absence of other right toe(s); Z89.411 Acquired absence of right great toe; Z89.412 Acquired absence of left great toe; Z95.828 Presence of other vascular implants and grafts ==

== ENCOUNTER → 2020-08-17 | Outpatient (CLI) | payer OTHER | LOC: M.WC 08:31 | PROVIDERS: ATTEND Family Medicine | DX: T81.89XA Other complications of procedures, not elsewhere classified, initial encounter (principal); E11.621 Type 2 diabetes mellitus with foot ulcer; L97.526 Non-pressure chronic ulcer of other part of left foot with bone involvement without evidence of necrosis; E11.52 Type 2 diabetes mellitus with diabetic peripheral angiopathy with gangrene; I96 Gangrene, not elsewhere classified; E11.69 Type 2 diabetes mellitus with other specified complication; M86.372 Chronic multifocal osteomyelitis, left ankle and foot; E11.42 Type 2 diabetes mellitus with diabetic polyneuropathy; J45.909 Unspecified asthma, uncomplicated; J42 Unspecified chronic bronchitis; M19.90 Unspecified osteoarthritis, unspecified site; F32.9 Major depressive disorder, single episode, unspecified; Z89.421 Acquired absence of other right toe(s); Z89.411 Acquired absence of right great toe; Z89.412 Acquired absence of left great toe; Z95.828 Presence of other vascular implants and grafts; Y92.238 Other place in hospital as the place of occurrence of the external cause; Y83.8 Other surgical procedures as the cause of abnormal reaction of the patient, or of later complication, without mention of misadventure at the time of the procedure ==

== ENCOUNTER → 2020-08-25 | Outpatient (CLI) | payer OTHER | LOC: M.WC 09:00 | PROVIDERS: ATTEND Family Medicine | DX: T81.89XD Other complications of procedures, not elsewhere classified, subsequent encounter (principal); E11.621 Type 2 diabetes mellitus with foot ulcer; L97.526 Non-pressure chronic ulcer of other part of left foot with bone involvement without evidence of necrosis; E11.52 Type 2 diabetes mellitus with diabetic peripheral angiopathy with gangrene; I96 Gangrene, not elsewhere classified; E11.69 Type 2 diabetes mellitus with other specified complication; M86.372 Chronic multifocal osteomyelitis, left ankle and foot; E11.42 Type 2 diabetes mellitus with diabetic polyneuropathy; J45.909 Unspecified asthma, uncomplicated; J42 Unspecified chronic bronchitis; M19.90 Unspecified osteoarthritis, unspecified site; F32.9 Major depressive disorder, single episode, unspecified; Z89.421 Acquired absence of other right toe(s); Z89.411 Acquired absence of right great toe; Z89.412 Acquired absence of left great toe; Z95.828 Presence of other vascular implants and grafts; Y83.8 Other surgical procedures as the cause of abnormal reaction of the patient, or of later complication, without mention of misadventure at the time of the procedure ==

== ENCOUNTER → 2020-09-01 | Outpatient (CLI) | payer OTHER | LOC: M.WC 08:41 | PROVIDERS: ATTEND Family Medicine | DX: T87.89 Other complications of amputation stump (principal); E11.621 Type 2 diabetes mellitus with foot ulcer; L97.526 Non-pressure chronic ulcer of other part of left foot with bone involvement without evidence of necrosis; E11.42 Type 2 diabetes mellitus with diabetic polyneuropathy; T81.89XD Other complications of procedures, not elsewhere classified, subsequent encounter; E11.52 Type 2 diabetes mellitus with diabetic peripheral angiopathy with gangrene; I96 Gangrene, not elsewhere classified; E11.69 Type 2 diabetes mellitus with other specified complication; M86.372 Chronic multifocal osteomyelitis, left ankle and foot; M19.90 Unspecified osteoarthritis, unspecified site; J45.909 Unspecified asthma, uncomplicated; F32.9 Major depressive disorder, single episode, unspecified; Z87.891 Personal history of nicotine dependence; Z89.421 Acquired absence of other right toe(s); Z79.4 Long term (current) use of insulin; Z79.899 Other long term (current) drug therapy; Y83.5 Amputation of limb(s) as the cause of abnormal reaction of the patient, or of later complication, without mention of misadventure at the time of the procedure; Y83.8 Other surgical procedures as the cause of abnormal reaction of the patient, or of later complication, without mention of misadventure at the time of the procedure ==

== ENCOUNTER → 2020-09-08 | Outpatient (CLI) | payer OTHER | LOC: M.WC 08:44 | PROVIDERS: ATTEND Family Medicine | DX: T87.89 Other complications of amputation stump (principal); E11.621 Type 2 diabetes mellitus with foot ulcer; L97.526 Non-pressure chronic ulcer of other part of left foot with bone involvement without evidence of necrosis; L97.511 Non-pressure chronic ulcer of other part of right foot limited to breakdown of skin; E11.69 Type 2 diabetes mellitus with other specified complication; M86.372 Chronic multifocal osteomyelitis, left ankle and foot; E11.52 Type 2 diabetes mellitus with diabetic peripheral angiopathy with gangrene; I96 Gangrene, not elsewhere classified; E11.42 Type 2 diabetes mellitus with diabetic polyneuropathy; Q66.01 Congenital talipes equinovarus, right foot; T81.89XD Other complications of procedures, not elsewhere classified, subsequent encounter; J45.909 Unspecified asthma, uncomplicated; M19.90 Unspecified osteoarthritis, unspecified site; F32.9 Major depressive disorder, single episode, unspecified; Z79.4 Long term (current) use of insulin; Z79.899 Other long term (current) drug therapy; Y83.5 Amputation of limb(s) as the cause of abnormal reaction of the patient, or of later complication, without mention of misadventure at the time of the procedure; Y83.8 Other surgical procedures as the cause of abnormal reaction of the patient, or of later complication, without mention of misadventure at the time of the procedure ==

== ENCOUNTER → 2020-09-15 | Outpatient (CLI) | payer OTHER | LOC: M.WC 08:45 | PROVIDERS: ATTEND Family Medicine | DX: T87.89 Other complications of amputation stump (principal); T81.89XD Other complications of procedures, not elsewhere classified, subsequent encounter; E11.621 Type 2 diabetes mellitus with foot ulcer; L97.526 Non-pressure chronic ulcer of other part of left foot with bone involvement without evidence of necrosis; L84 Corns and callosities; E11.69 Type 2 diabetes mellitus with other specified complication; M86.372 Chronic multifocal osteomyelitis, left ankle and foot; E11.52 Type 2 diabetes mellitus with diabetic peripheral angiopathy with gangrene; I96 Gangrene, not elsewhere classified; E11.42 Type 2 diabetes mellitus with diabetic polyneuropathy; Q66.01 Congenital talipes equinovarus, right foot; J45.909 Unspecified asthma, uncomplicated; J42 Unspecified chronic bronchitis; M19.90 Unspecified osteoarthritis, unspecified site; F32.9 Major depressive disorder, single episode, unspecified; Z79.4 Long term (current) use of insulin; Y83.8 Other surgical procedures as the cause of abnormal reaction of the patient, or of later complication, without mention of misadventure at the time of the procedure; Y83.5 Amputation of limb(s) as the cause of abnormal reaction of the patient, or of later complication, without mention of misadventure at the time of the procedure ==

== ENCOUNTER → 2020-09-22 | Outpatient (CLI) | payer OTHER | LOC: M.WC 09:00 | PROVIDERS: ATTEND Family Medicine | DX: T87.89 Other complications of amputation stump (principal); T81.89XD Other complications of procedures, not elsewhere classified, subsequent encounter; E11.621 Type 2 diabetes mellitus with foot ulcer; L97.526 Non-pressure chronic ulcer of other part of left foot with bone involvement without evidence of necrosis; L84 Corns and callosities; E11.69 Type 2 diabetes mellitus with other specified complication; M86.372 Chronic multifocal osteomyelitis, left ankle and foot; E11.52 Type 2 diabetes mellitus with diabetic peripheral angiopathy with gangrene; I96 Gangrene, not elsewhere classified; E11.42 Type 2 diabetes mellitus with diabetic polyneuropathy; Q66.01 Congenital talipes equinovarus, right foot; J45.909 Unspecified asthma, uncomplicated; J42 Unspecified chronic bronchitis; M19.90 Unspecified osteoarthritis, unspecified site; F32.9 Major depressive disorder, single episode, unspecified; Z79.4 Long term (current) use of insulin; Y83.8 Other surgical procedures as the cause of abnormal reaction of the patient, or of later complication, without mention of misadventure at the time of the procedure; Y83.5 Amputation of limb(s) as the cause of abnormal reaction of the patient, or of later complication, without mention of misadventure at the time of the procedure ==

== ENCOUNTER → 2020-09-29 | Outpatient (CLI) | payer OTHER | LOC: M.WC 08:48 | PROVIDERS: ATTEND Family Medicine | DX: T87.89 Other complications of amputation stump (principal); E11.621 Type 2 diabetes mellitus with foot ulcer; L97.526 Non-pressure chronic ulcer of other part of left foot with bone involvement without evidence of necrosis; E11.69 Type 2 diabetes mellitus with other specified complication; M86.372 Chronic multifocal osteomyelitis, left ankle and foot; E11.52 Type 2 diabetes mellitus with diabetic peripheral angiopathy with gangrene; I96 Gangrene, not elsewhere classified; E11.42 Type 2 diabetes mellitus with diabetic polyneuropathy; J45.909 Unspecified asthma, uncomplicated; M19.90 Unspecified osteoarthritis, unspecified site; F32.9 Major depressive disorder, single episode, unspecified; Z87.891 Personal history of nicotine dependence; Z79.4 Long term (current) use of insulin; Z89.411 Acquired absence of right great toe; Z89.421 Acquired absence of other right toe(s); Y83.5 Amputation of limb(s) as the cause of abnormal reaction of the patient, or of later complication, without mention of misadventure at the time of the procedure ==

== ENCOUNTER → 2020-10-02 | Outpatient (CLI) | payer OTHER ==
[~2020-10-02] MED LIST changes: +ACTOS15 MG PO; +RAMIPRIL10 MG PO
== END ==
LOC: M.WC 12:22
PROVIDERS: ATTEND Podiatrist Foot & Ankle Surgery
DX: T87.89 Other complications of amputation stump (principal); E11.621 Type 2 diabetes mellitus with foot ulcer; L97.524 Non-pressure chronic ulcer of other part of left foot with necrosis of bone; E11.69 Type 2 diabetes mellitus with other specified complication; M86.372 Chronic multifocal osteomyelitis, left ankle and foot; E11.52 Type 2 diabetes mellitus with diabetic peripheral angiopathy with gangrene; I96 Gangrene, not elsewhere classified; E11.42 Type 2 diabetes mellitus with diabetic polyneuropathy; J45.909 Unspecified asthma, uncomplicated; J42 Unspecified chronic bronchitis; M19.90 Unspecified osteoarthritis, unspecified site; F32.9 Major depressive disorder, single episode, unspecified; Z87.891 Personal history of nicotine dependence; Z79.4 Long term (current) use of insulin; Z89.411 Acquired absence of right great toe; Z89.421 Acquired absence of other right toe(s); Y83.5 Amputation of limb(s) as the cause of abnormal reaction of the patient, or of later complication, without mention of misadventure at the time of the procedure

== ENCOUNTER → 2020-10-04 | Day surgery (SDC) | payer OTHER ==
[2020-10-04 11:05] LABS: HEMATOCRIT 38.2 % (37.0-47.0); HEMOGLOBIN 12.1 gm/dL (12.0-15.0); MCHC 31.8 g/dL (28.0-37.0); MCV 81.7 fL (80.0-100.0); MPV 6.9 fl. (7.2-11.1); RBC 4.68 mil/uL (4.20-5.00); RDW-CV 17.7 % (10.5-14.5); WBC 4.6 thou/uL (4.0-11.0)
[2020-10-04 11:11] LABS: CALCIUM 9.8 mg/dL (8.5-10.1); POTASSIUM 4.9 mmol/L (3.5-5.1)
--- NOTE | 2020-10-04 11:13 | EKG ---
[place] [address] ELECTROCARDIOGRAM REPORT Name: GALEN OZUNA Room: [facility]#: [id number] Admission: Attend Phys: Ermelinda Clancy Discharge: Date of : 53 Date of Service: 10/04/20 1045 Report #: [id number] THIS REPORT FOR: //name// [facility] Test Date: 2020-10-04 Test Time: 10:45:56 Pat Name: GALEN OZUNA Department: Room: Gender: F Director Medical Writing: [place] : 1955 Requested By: Ermelinda Clancy Order Number: [id number] Reading MD: Chris Skinner Measurements Intervals [place] Rate: 74 P: -13 IN: 151 QRS: -54 QRSD: 124 T: 29 QT: 431 QTc: 479 Interpretive Statements Sinus rhythm Probable left atrial enlargement RBBB and LAFB Left ventricular hypertrophy Compared to ECG 02/16/2020 21:59:52 Atrial premature complex(es) no longer present Electronically Signed On 10-04-2020 11:13:15 CDT by Chris Skinner [email or web address] <ELECTRONICALLY SIGNED> By: Chris Skinner MD, [facility] 10/04/20 1113 1045 1045 Chris Skinner MD, [facility] /EPI
--- NOTE | 2020-10-06 11:08 | PATH ---
[address] [place] [address] PATHOLOGY RPT PROCEDURE Name: BARBARA OZUNA Room: [facility] Eris#: [id number] Admission: 10/04/20 Date of : 53 Discharge: Report #: [id number] Path Case #: [id number] [facility] Accession Number: [id number] . 01 Material submitted: . toe - LEFT FOOT 2ND TOE. Modifiers: left, second . 01 Clinical history: . AMPUTATION OF TOES TENDON TENOTOMY OSTEOMYELITIS, HAMMER TOE . 02 Diagnosis: Left foot second toe: - Benign toe with nonspecific ulceration of tip, acute inflammation of underlying soft tissues and extensive osteomyelitis of underlying phalangeal bone, with proximal disarticulation margin free of osteomyelitis. . (DORA:luciano; 10/05/2020) [facility] 10/05/2020 1625 Local . 02 Electronically signed: . Bryan Thomas MD, Pathologist NPI- [id number] . 01 Gross description: . The specimen is received in formalin, labeled "Barbara Ozuna and left foot second toe". It consists of a disarticulated toe amputation measuring 5.3 cm long and ranging in diameter from 1.0-2.3 cm in greatest dimension. The skin and soft tissue at the resection surface appears grossly viable (inked black). The bony segment of the resection surface displays a smooth articular surface. Identified at the distal tip is a liu, erythematous, centrally ulcerated wound measuring 0.7 x 0.4 cm. The skin surrounding the ulcer appears markedly sloughed. A liu-yellow thickened nail is present. The remaining epidermal surface appears liu-pereyra and focally erythematous. Admin Prog Coord sections are submitted as follows: A1-A3: Longitudinal section, submitted from distal to proximal, following decalcification. MFE/MFE 10/04/2020 1922 Local . 02 Pathologist provided ICD-10: L97.529, M79.9, M86.172 . 02 CPT . 503234, 794473 Specimen Comment: A courtesy copy of this report has been sent to [phone], [place] [address] PATHOLOGY RPT PROCEDURE Name: BARBARA OZUNA [id number] Admission: 10/04/20 Date of : 53 Discharge: Report #: [id number] Path Case #: [id number] Specimen Comment: [id number] Specimen Comment: Report sent to / DR BYRD Performed at: [address], [place], [place] [id number] MD Jayro Powell MD Phone: [phone] Performed at: [address] [facility] [address] [address], [place], [place] [id number] MD Bryan Thomas MD Phone: [phone]
== END | disposition home or self-care (01) ==
LOC: M.SUR 05:35
PROVIDERS: ATTEND Podiatrist Foot & Ankle Surgery
DX: E11.69 Type 2 diabetes mellitus with other specified complication (principal); M86.8X7 Other osteomyelitis, ankle and foot; M20.42 Other hammer toe(s) (acquired), left foot; F32.9 Major depressive disorder, single episode, unspecified; F17.210 Nicotine dependence, cigarettes, uncomplicated; Z98.890 Other specified postprocedural states; Z20.822 Contact with and (suspected) exposure to COVID-19; Z79.899 Other long term (current) drug therapy; Z90.710 Acquired absence of both cervix and uterus; Z98.41 Cataract extraction status, right eye; Z98.42 Cataract extraction status, left eye; Z96.1 Presence of intraocular lens; Z88.6 Allergy status to analgesic agent

== ENCOUNTER → 2020-10-09 | Outpatient (CLI) | payer OTHER | LOC: M.WC 12:07 | PROVIDERS: ATTEND Podiatrist Foot & Ankle Surgery | DX: T87.89 Other complications of amputation stump (principal); E11.621 Type 2 diabetes mellitus with foot ulcer; L97.524 Non-pressure chronic ulcer of other part of left foot with necrosis of bone; E11.69 Type 2 diabetes mellitus with other specified complication; M86.372 Chronic multifocal osteomyelitis, left ankle and foot; E11.52 Type 2 diabetes mellitus with diabetic peripheral angiopathy with gangrene; I96 Gangrene, not elsewhere classified; E11.42 Type 2 diabetes mellitus with diabetic polyneuropathy; J45.909 Unspecified asthma, uncomplicated; J42 Unspecified chronic bronchitis; M19.90 Unspecified osteoarthritis, unspecified site; F32.9 Major depressive disorder, single episode, unspecified; Z87.891 Personal history of nicotine dependence; Z79.4 Long term (current) use of insulin; Z89.411 Acquired absence of right great toe; Z89.421 Acquired absence of other right toe(s); Y83.5 Amputation of limb(s) as the cause of abnormal reaction of the patient, or of later complication, without mention of misadventure at the time of the procedure ==

== ENCOUNTER → 2020-10-16 | Outpatient (CLI) | payer OTHER | LOC: M.WC 12:35 | PROVIDERS: ATTEND Podiatrist Foot & Ankle Surgery | DX: T87.89 Other complications of amputation stump (principal); E11.621 Type 2 diabetes mellitus with foot ulcer; L97.524 Non-pressure chronic ulcer of other part of left foot with necrosis of bone; E11.69 Type 2 diabetes mellitus with other specified complication; M86.372 Chronic multifocal osteomyelitis, left ankle and foot; E11.52 Type 2 diabetes mellitus with diabetic peripheral angiopathy with gangrene; I96 Gangrene, not elsewhere classified; E11.42 Type 2 diabetes mellitus with diabetic polyneuropathy; J45.909 Unspecified asthma, uncomplicated; J42 Unspecified chronic bronchitis; M19.90 Unspecified osteoarthritis, unspecified site; F32.9 Major depressive disorder, single episode, unspecified; Z87.891 Personal history of nicotine dependence; Z79.4 Long term (current) use of insulin; Z89.411 Acquired absence of right great toe; Z89.421 Acquired absence of other right toe(s); Y83.5 Amputation of limb(s) as the cause of abnormal reaction of the patient, or of later complication, without mention of misadventure at the time of the procedure ==

== ENCOUNTER → 2020-10-19 | Outpatient (CLI) | payer OTHER | LOC: M.WC 08:47 | PROVIDERS: ATTEND Family Medicine | DX: T87.89 Other complications of amputation stump (principal); E11.621 Type 2 diabetes mellitus with foot ulcer; L97.524 Non-pressure chronic ulcer of other part of left foot with necrosis of bone; E11.69 Type 2 diabetes mellitus with other specified complication; M86.372 Chronic multifocal osteomyelitis, left ankle and foot; E11.52 Type 2 diabetes mellitus with diabetic peripheral angiopathy with gangrene; I96 Gangrene, not elsewhere classified; E11.42 Type 2 diabetes mellitus with diabetic polyneuropathy; J45.909 Unspecified asthma, uncomplicated; J42 Unspecified chronic bronchitis; M19.90 Unspecified osteoarthritis, unspecified site; F32.9 Major depressive disorder, single episode, unspecified; Z87.891 Personal history of nicotine dependence; Z79.4 Long term (current) use of insulin; Z89.411 Acquired absence of right great toe; Z89.421 Acquired absence of other right toe(s); Y83.5 Amputation of limb(s) as the cause of abnormal reaction of the patient, or of later complication, without mention of misadventure at the time of the procedure ==

== ENCOUNTER → 2020-10-23 | Outpatient (CLI) | payer OTHER | LOC: M.WC 12:39 | PROVIDERS: ATTEND Podiatrist Foot & Ankle Surgery | DX: T81.31XA Disruption of external operation (surgical) wound, not elsewhere classified, initial encounter (principal); E11.621 Type 2 diabetes mellitus with foot ulcer; L97.524 Non-pressure chronic ulcer of other part of left foot with necrosis of bone; L84 Corns and callosities; E11.52 Type 2 diabetes mellitus with diabetic peripheral angiopathy with gangrene; I96 Gangrene, not elsewhere classified; E11.69 Type 2 diabetes mellitus with other specified complication; M86.372 Chronic multifocal osteomyelitis, left ankle and foot; E11.42 Type 2 diabetes mellitus with diabetic polyneuropathy; J45.909 Unspecified asthma, uncomplicated; J42 Unspecified chronic bronchitis; M19.90 Unspecified osteoarthritis, unspecified site; F32.9 Major depressive disorder, single episode, unspecified; Z89.421 Acquired absence of other right toe(s); Z87.891 Personal history of nicotine dependence; Y92.238 Other place in hospital as the place of occurrence of the external cause; Y83.8 Other surgical procedures as the cause of abnormal reaction of the patient, or of later complication, without mention of misadventure at the time of the procedure ==

== ENCOUNTER → 2021-02-13 | Outpatient (CLI) | payer OTHER | LOC: M.WC 09:42 | PROVIDERS: ATTEND Emergency Medicine Undersea and Hyperbaric Medicine | DX: S61.001A Unspecified open wound of right thumb without damage to nail, initial encounter (principal); E11.621 Type 2 diabetes mellitus with foot ulcer; L97.511 Non-pressure chronic ulcer of other part of right foot limited to breakdown of skin; E11.622 Type 2 diabetes mellitus with other skin ulcer; L98.492 Non-pressure chronic ulcer of skin of other sites with fat layer exposed; E11.69 Type 2 diabetes mellitus with other specified complication; M86.042 Acute hematogenous osteomyelitis, left hand; E11.42 Type 2 diabetes mellitus with diabetic polyneuropathy; J45.909 Unspecified asthma, uncomplicated; M19.90 Unspecified osteoarthritis, unspecified site; F32.9 Major depressive disorder, single episode, unspecified; Z79.4 Long term (current) use of insulin; Z79.899 Other long term (current) drug therapy; Z89.421 Acquired absence of other right toe(s); Z89.411 Acquired absence of right great toe; Z90.710 Acquired absence of both cervix and uterus; Z90.49 Acquired absence of other specified parts of digestive tract; Z90.89 Acquired absence of other organs; Z98.890 Other specified postprocedural states; Z98.49 Cataract extraction status, unspecified eye; Z87.891 Personal history of nicotine dependence; X58.XXXA Exposure to other specified factors, initial encounter; Y93.89 Activity, other specified; Y92.89 Other specified places as the place of occurrence of the external cause; Y99.8 Other external cause status ==

== ENCOUNTER → 2021-03-27 | Outpatient (CLI) | payer BC | LOC: M.LAB 12:29 | PROVIDERS: ATTEND Anesthesiology | DX: Z01.812 Encounter for preprocedural laboratory examination (principal); Z20.822 Contact with and (suspected) exposure to COVID-19 ==